=== PATIENT | male | born 1960 | race American Indian/Alaskan Native ===

== ENCOUNTER 2020-04-17 06:50 | Observation (INO) | payer OTHER ==
[2020-04-17] MEDS ORDERED: ACETAMINOPHEN 325 MG TAB PO ONE (07:17)
--- NOTE | 2020-04-17 07:22 | Emergency Department Report ---
ED General Adult HPI - General Chief complaint: Dizziness Stated complaint: DIZZINESS,STEFANY PUI?: No Time Seen by Provider: 04/17/20 07:00 Source: patient, RN notes reviewed Mode of arrival: Wheelchair Limitations: No Limitations, Physical Limitation - History of Present Illness Initial comments: The patient was evaluated in the emergency department for symptoms described in the history of present illness. He/she was evaluated in the context of the global COVID-19 pandemic, which necessitated consideration that the patient mi ght be at risk for infection with the virus that causes COVID-19. Institutional protocols and algorithms that pertain to the evaluation of patients at risk for COVID-19 are in a state of rapid change based on information released by regulatory bodies including the CDC and federal and state organizations. These policies and algorithms were followed during the patient's care in the emergency department. Please note that these policies, procedures and recommendations changed on a rapid basis. The patient is a 59-year-old gentleman. He is not known to myself previously. 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 He typically follows with the [facility] in [place], and also reports that he follows with a manager of network, by the name of Dr. Leal. His past medical history includes obesity, factor V mutation, pulmonary embolism in 1993, on lifetime Coumadin/anticoagulation, diagnosed with COVID-19 in February 2020, reports recently being admitted to [facility] twice within the past month, for renal insufficiency, pneumonia, and symptomatic Covid. He was cleared to return to work yesterday. He states that he saw his primary care doctor, and had an x- ray the chest, which he states was "okay." The patient was working this evening, in his capacity as a manager line on the floor, reports that he was feeling like he was in his usual state of health. 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 He states that while trying to get himself up, he felt shortness of breath, generalized weakness, and dizziness. Dizziness is described as generalized weakness. He denies sensation of imbalance, he did admit to lightheadedness, and denies sensation of room spinning. He states "I feel like I am out of shape." He also has a history of obstructive sleep apnea, and has been noncompliant with his CPAP for over a month, secondary to not purchasing distilled water. He states that he feels like he is back to his baseline at this time. He denies physical pain at this time, with the exception of nontraumatic left medial and plantar foot pain. This has been present for 5 days. He lives at home by himself, and has a cane. He does not have stairs at home. -: Sudden Consistency: now resolved Improves with: rest Worsens with: movement - Related Data Home Medications Medication Instructions Recorded Confirmed Last Taken Rosuvastatin Calcium [Crestor] 10 mg PO QDAY 04/17/20 04/17/20 Unknown Vitamin B Complex [Super B-50 1 each PO QDAY 04/17/20 04/17/20 Unknown Complex] Warfarin [Coumadin] 5 mg PO QDAY 04/17/20 04/17/20 Unknown Zinc Sulfate [Zinc-15] 66 mg PO QDAY 04/17/20 04/17/20 Unknown Previous Rx's Medication Instructions Recorded Last Taken Type Magnesium Oxide 400 mg PO QDAY #30 tablet 04/17/20 Unknown Rx Potassium Chloride [K-Dur] 20 meq PO QDAY #30 tablet 04/17/20 Unknown Rx Ascorbic Acid/Ascorbate Sodium 500 mg PO QDAY #30 wafer 04/20/20 Unknown Rx [Vitamin C 500 mg Wafer] Atenolol [Tenormin] 100 mg PO DAILY #30 04/20/20 Unknown Rx Insulin Regular, Human [Novolin R 20 unit SQ QAM 30 Days 04/20/20 Unknown Rx Flexpen] Insulin Regular, Human [Novolin R] 30 unit IJ QHS 30 Days vial 04/20/20 Unknown Rx Levothyroxine [Synthroid] 125 mcg PO QAM #30 04/20/20 Unknown Rx Metformin HCl [Glucophage] 1,000 mg PO BID 30 Days 04/20/20 Unknown Rx Pantoprazole [Protonix TAB] 40 mg PO QDAC #30 tablet 04/20/20 Unknown Rx amLODIPine 5 mg PO DAILY #30 04/20/20 Unknown Rx glipiZIDE [Glucotrol] 5 mg PO QDAY #30 04/20/20 Unknown Rx hydroCHLOROthiazide [HCTZ] 25 mg PO QDAY #30 04/20/20 Unknown Rx lisinopriL [Zestril TAB] 20 mg PO QDAY 30 Days 04/20/20 Unknown Rx metFORMIN [Glucophage] 1,000 mg PO BIDDIAB tablet 04/20/20 Unknown Rx Allergies Allergy/AdvReac Type Severity Reaction Status Date / Time ibuprofen Allergy Unknown Verified 04/17/20 18:50 ED Review of Systems ROS: Stated complaint: DIZZINESS,STEFANY Other details as noted in HPI Constitutional: malaise, weakness. denies: fever Eyes: denies: eye discharge ENT: denies: congestion Respiratory: shortness of breath, SOB with exertion, SOB at rest Cardiovascular: dyspnea on exertion. denies: chest pain Gastrointestinal: denies: abdominal pain, nausea, vomiting, hematemesis, melena, hematochezia Genitourinary: denies: dysuria Musculoskeletal: back pain, myalgia Neurological: weakness Hematological/Lymphatic: denies: easy bleeding ED Past Medical Hx - Medications Home Medications: Home Medications Medication Instructions Recorded Confirmed Last Taken Type Magnesium Oxide 400 mg PO QDAY #30 tablet 04/17/20 Unknown Rx Potassium Chloride [K-Dur] 20 meq PO QDAY #30 tablet 04/17/20 Unknown Rx Rosuvastatin Calcium [Crestor] 10 mg PO QDAY 04/17/20 04/17/20 Unknown History Vitamin B Complex [Super B-50 1 each PO QDAY 04/17/20 04/17/20 Unknown History Complex] Warfarin [Coumadin] 5 mg PO QDAY 04/17/20 04/17/20 Unknown History Zinc Sulfate [Zinc-15] 66 mg PO QDAY 04/17/20 04/17/20 Unknown History Ascorbic Acid/Ascorbate Sodium 500 mg PO QDAY #30 wafer 04/20/20 Unknown Rx [Vitamin C 500 mg Wafer] Atenolol [Tenormin] 100 mg PO DAILY #30 04/20/20 Unknown Rx Insulin Regular, Human [Novolin R 20 unit SQ QAM 30 Days 04/20/20 Unknown Rx Flexpen] Insulin Regular, Human [Novolin R] 30 unit IJ QHS 30 Days vial 04/20/20 Unknown Rx Levothyroxine [Synthroid] 125 mcg PO QAM #30 04/20/20 Unknown Rx Metformin HCl [Glucophage] 1,000 mg PO BID 30 Days 04/20/20 Unknown Rx Pantoprazole [Protonix TAB] 40 mg PO QDAC #30 tablet 04/20/20 Unknown Rx amLODIPine 5 mg PO DAILY #30 04/20/20 Unknown Rx glipiZIDE [Glucotrol] 5 mg PO QDAY #30 04/20/20 Unknown Rx hydroCHLOROthiazide [HCTZ] 25 mg PO QDAY #30 04/20/20 Unknown Rx lisinopriL [Zestril TAB] 20 mg PO QDAY 30 Days 04/20/20 Unknown Rx metFORMIN [Glucophage] 1,000 mg PO BIDDIAB tablet 04/20/20 Unknown Rx ED Physical Exam - General Limitations: Physical Limitation General appearance: alert, in no apparent distress, obese - Head Head exam: Present: atraumatic, normocephalic - Eye Eye exam: Present: normal appearance, PERRL, EOMI, other (Visual acuity intact to finger counting, color perception, reading at a close distance). Absent: nystagmus - ENT ENT exam: Present: normal exam, normal orophraynx, mucous membranes moist, normal external ear exam - Neck Neck exam: Present: normal inspection, full ROM. Absent: tenderness, meningismus - Respiratory Respiratory exam: Present: normal lung sounds bilaterally. Absent: respiratory distress, wheezes, rales, rhonchi, stridor, decreased breath sounds - Cardiovascular Cardiovascular Exam: Present: regular rate, normal rhythm, normal heart sounds. Absent: bradycardia, tachycardia, irregular rhythm, systolic murmur, diastolic murmur, rubs, gallop - GI/Abdominal GI/Abdominal exam: Present: soft. Absent: distended, tenderness, guarding, rebound, rigid, pulsatile mass - Rectal Rectal exam: Present: deferred - Extremities Exam Extremities exam: Present: normal inspection, full ROM, pedal edema (2+ edema in the bilateral lower extremity), other (2+ pulses noted in the bilateral upper and lower extremities. There is no palpable cord. negative Homans sign. Muscular compartments are soft. The pelvis is stable.). Absent: calf tenderness - Back Exam Back exam: Present: normal inspection, full ROM. Absent: tenderness, CVA tenderness (R), CVA tenderness (L), paraspinal tenderness, vertebral tenderness - Neurological Exam Neurological exam: Present: alert (There is normal [id number]. There is no pronator drift. There is no past-pointing.), oriented X3, other (No facial droop. Tongue midline. Extraocular movements intact bilaterally. Facial sensation intact to light touch in V1, V2, V3 distribution bilaterally. 5 and a 5 strength in 4 extremities. Sensation intact to light touch in 4 extremities. There is no past-pointing. ). Absent: motor sensory deficit - Psychiatric Psychiatric exam: Present: normal affect, normal mood - Skin Skin exam: Present: warm, dry, intact, normal color. Absent: rash ED Course Vital Signs 04/17/20 04/17/20 04/17/20 06:55 07:17 07:30 Temperature 98.3 F Pulse Rate 90 79 Respiratory 24 19 Rate Blood Pressure 96/55 Blood Pressure 101/63 [Left] O2 Sat by Pulse 98 Oximetry 04/17/20 04/17/20 04/17/20 07:45 08:00 08:31 Temperature Pulse Rate 77 75 78 Respiratory 20 14 15 Rate Blood Pressure 104/62 112/71 112/71 Blood Pressure [Left] O2 Sat by Pulse 100 100 100 Oximetry 04/17/20 04/17/20 04/17/20 09:00 09:30 10:00 Temperature Pulse Rate 80 79 76 Respiratory 18 18 16 Rate Blood Pressure 108/58 95/65 108/60 Blood Pressure [Left] O2 Sat by Pulse 100 Oximetry 04/17/20 04/17/20 04/17/20 10:30 11:00 11:30 Temperature Pulse Rate 80 72 73 Respiratory 20 11 L 12 Rate Blood Pressure 114/69 107/56 120/70 Blood Pressure [Left] O2 Sat by Pulse 97 98 100 Oximetry 04/17/20 04/17/20 04/17/20 12:00 12:30 13:00 Temperature Pulse Rate 81 76 81 Respiratory 22 21 16 Rate Blood Pressure 109/64 109/63 125/79 Blood Pressure [Left] O2 Sat by Pulse 98 98 Oximetry 04/17/20 04/17/20 04/17/20 14:00 14:30 15:01 Temperature Pulse Rate 78 82 80 Respiratory 26 H 21 14 Rate Blood Pressure 97/65 99/65 107/57 Blood Pressure [Left] O2 Sat by Pulse 100 Oximetry 04/17/20 04/17/20 04/17/20 15:30 16:00 16:30 Temperature Pulse Rate 74 69 82 Respiratory 24 19 17 Rate Blood Pressure 115/63 113/63 113/73 Blood Pressure [Left] O2 Sat by Pulse 98 97 Oximetry 04/17/20 04/17/20 04/17/20 17:00 17:30 18:00 Temperature Pulse Rate 76 82 79 Respiratory 12 14 20 Rate Blood Pressure 115/71 117/70 102/56 Blood Pressure [Left] O2 Sat by Pulse 98 98 98 Oximetry 04/17/20 04/17/20 04/17/20 18:30 19:00 19:30 Temperature Pulse Rate 80 81 85 Respiratory 20 22 24 Rate Blood Pressure 128/75 122/75 128/82 Blood Pressure [Left] O2 Sat by Pulse 99 96 Oximetry 04/17/20 04/17/20 04/17/20 20:00 20:31 21:00 Temperature Pulse Rate Respiratory Rate Blood Pressure 137/84 115/71 126/77 Blood Pressure [Left] O2 Sat by Pulse 98 97 98 Oximetry 04/17/20 04/17/20 04/17/20 21:30 22:00 22:30 Temperature Pulse Rate 76 66 71 Respiratory 22 19 19 Rate Blood Pressure 132/82 132/85 134/81 Blood Pressure [Left] O2 Sat by Pulse 98 99 97 Oximetry 04/17/20 04/17/20 04/18/20 23:01 23:30 00:00 Temperature Pulse Rate 85 74 72 Respiratory 28 H 17 19 Rate Blood Pressure 145/72 133/85 129/82 Blood Pressure [Left] O2 Sat by Pulse 98 98 96 Oximetry 04/18/20 04/18/20 00:11 00:21 Temperature Pulse Rate 67 70 Respiratory 21 25 H Rate Blood Pressure 129/82 134/79 Blood Pressure [Left] O2 Sat by Pulse 98 97 Oximetry - Reevaluation(s) Reevaluation #1: 04/17/20 07:23 Differential diagnosis, including but not limited to: Physical deconditioning, pulmonary hypertension, obstructive sleep apnea, obesity hypoventilation syndrome Assessment and plan: 59-year-old gentleman, who is morbidly obese, on Coumadin therapy, reports recent INR of 2.7, also reports 2 recent hospitalizations within the past month for pneumonia, renal insufficiency, and COVID-19, diagnosed with COVID-19 March 12, 2020, who was in his usual state of health earlier on today, without any symptoms, accidentally dropped a blood sample, leaned over, 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 I suspect the patient is experiencing the natural history of physical deconditioning, and obstructive sleep apnea. He is not currently tachycardic, tachypneic or hypoxic. He is compliant with Coumadin. He states he does not have new or different leg pain or leg swelling. Therefore, I think a pulmonary embolism is unlikely. His physical exam was fairly benign and unremarkable, however, we stood the patient up, and he was not able to walk. We will treat his pain, obtain appropriate laboratory studies, EKG, and x-ray the chest. We will reassess after initial data points. I extensively discussed the patient on the need to remain compliant with his CPAP machine, and to participate in diet, weight loss and lifestyle modifications. 04/17/20 07:27 Orthostasis may also be a component here, blood pressure in the high 90s. Patient denies bright red blood per rectum, and hematemesis. IV fluids ordered. Reevaluation #2: 04/17/20 08:37 Blood pressure improved. Patient able to ambulate with a steady gait. Patient specifically denies hematemesis, and bright red blood per rectum. I offered patient a rectal examination, which he declined. Given that he denies bright red blood per rectum, given that hemoglobin, hematocrit appear to be acceptable at this time, given that he is a reliable historian, I think this plan of care is reasonable. Reevaluation #3: 04/17/20 09:01 Patient reassessed. He is in no acute distress. He tells me he takes lisinopril, HCTZ, Norvasc, Metformin, glipizide, rosuvastatin, as well as insulin. His laboratory studies demonstrate hypokalemia, hypomagnesemia, renal insu fficiency, transaminitis, and elevated total bilirubin. The patient is adamant that he does not want to be admitted to the medical service. I have instructed patient to hold lisinopril, HCTZ, Metformin, glipizide, rosuvastatin. He will need to closely follow-up with his outpatient primary care doctor. He can continue his Norvasc, insulin, and he should participate in diet lifestyle modifications. 04/17/20 09:02 Patient also given a copy of his laboratory studies to take to his primary care doctor. Hyperglycemia reviewed and appreciated. This appears to be chronic. Insulin will be held given hypokalemia. We will replete patient's potassium and magnesium orally. The patient is adamant that he does not want to be admitted to the hospital, and states he would like to follow-up with as an outpatient with his primary care doctor. Reevaluation #4: 04/17/20 09:23 I went back to reevaluate the patient. I have discussed his laboratory studies with himself once again. His blood pressure is now 96/55. I have strongly counseled the patient to allow us to admit him to the medical service, for supportive care, and further diagnostic work-up and evaluation for his multiple laboratory abnormalities. He states he is amenable at this point in time for hospitalization. Hospital physician, Dr. Aneudy Mishra, To admit patient to the medical service. She requests a repeat Covid test, given his history of Covid from last month. I do not suspect a Covid infection at this time However, as a courtesy, I will order the test and defer to the inpatient team to followed up ED Medical Decision Making - Lab Data Result diagrams: 04/19/20 06:00 04/19/20 06:00 Vital Signs 04/17/20 06:55 Pulse Rate 90 Respiratory 24 Rate Blood Pressure 101/63 [Left] O2 Sat by Pulse 98 Oximetry Vital Signs 04/17/20 04/17/20 04/17/20 06:55 07:17 07:30 Temperature 98.3 F Pulse Rate 90 79 Respiratory 24 19 Rate Blood Pressure 96/55 Blood Pressure 101/63 [Left] O2 Sat by Pulse 98 Oximetry 04/17/20 07:45 Temperature Pulse Rate 77 Respiratory 20 Rate Blood Pressure 104/62 Blood Pressure [Left] O2 Sat by Pulse 100 Oximetry Lab Results 04/17/20 04/17/20 04/17/20 Range/Units 07:43 07:43 07:43 WBC 10.4 (4.5-11.0) K/mm3 RBC 4.48 (3.65-5.03) M/mm3 Hgb 12.9 (11.8-15.2) gm/dl Hct 38.7 (35.5-45.6) % MCV 87 (84-94) fl MCH 29 (28-32) pg MCHC 33 (32-34) % RDW 17.5 H (13.2-15.2) % Plt Count 175 (140-440) K/mm3 [place] % (Auto) 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 INR 2.76 H (0.87-1.13) APTT 41.0 H (24.2-36.6) Sec. Sodium 140 (137-145) mmol/L Potassium 3.3 L (3.6-5.0) mmol/L Chloride 99.3 (98-107) mmol/L Carbon Dioxide 27 (22-30) mmol/L Anion Gap 17 mmol/L BUN 15 (9-20) mg/dL Creatinine 2.0 H (0.8-1.3) mg/dL Estimated GFR 42 ml/min BUN/Creatinine Ratio 8 % Glucose 260 H (75-100) mg/dL Calcium 10.1 (8.4-10.2) mg/dL Magnesium 1.60 L (1.7-2.3) mg/dL Total Bilirubin 1.30 H (0.1-1.2) mg/dL AST 328 H (5-40) units/L ALT 276 H (7-56) units/L Alkaline Phosphatase 163 H (35-129) units/L Total Creatine Kinase 123 (55-170) units/L Troponin T < 0.010 (0.00-0.029) ng/mL Total Protein 6.9 (6.3-8.2) g/dL Albumin 3.4 L (3.9-5) g/dL Albumin/Globulin Ratio 1.0 % TSH (0.270-4.200) mlU/mL 04/17/ Range/Units 07:43 WBC (4.5-11.0) K/mm3 RBC (3.65-5.03) M/mm3 Hgb (11.8-15.2) gm/dl Hct (35.5-45.6) % MCV (84-94) fl MCH (28-32) pg MCHC (32-34) % RDW (13.2-15.2) % Plt Count (140-440) K/mm3 [place] % (Auto) PT (12.2-14.9) Sec. INR (0.87-1.13) APTT (24.2-36.6) Sec. Sodium (137-145) mmol/L Potassium (3.6-5.0) mmol/L Chloride (98-107) mmol/L Carbon Dioxide (22-30) mmol/L Anion Gap mmol/L BUN (9-20) mg/dL Creatinine (0.8-1.3) mg/dL Estimated GFR ml/min BUN/Creatinine Ratio % Glucose (75-100) mg/dL Calcium (8.4-10.2) mg/dL Magnesium (1.7-2.3) mg/dL Total Bilirubin (0.1-1.2) mg/dL AST (5-40) units/L ALT (7-56) units/L Alkaline Phosphatase (35-129) units/L Total Creatine Kinase (55-170) units/L Troponin T (0.00-0.029) ng/mL Total Protein (6.3-8.2) g/dL Albumin (3.9-5) g/dL Albumin/Globulin Ratio % TSH 3.520 (0.270-4.200) mlU/mL - EKG Data -: EKG Interpreted by [place] EKG shows normal: sinus rhythm Rate: normal - EKG Data When compared to previous EKG there are: previous EKG unavailable 04/17/20 07:45 Sinus rhythm, 78 bpm, QTC prolonged, 459 ms. Left axis deviation, left anterior fascicular block. Nonspecific T wave abnormalities. Abnormal EKG. Not a STEMI. - Radiology Data Radiology results: pending Critical care attestation.: If time is entered above; I have spent that time in minutes in the direct care of this critically ill patient, excluding procedure time. ED Disposition Clinical Impression: Obstructive sleep apnea of adult, Anticoagulated, Noncompliance, Obesity, Shortness of breath, Physical deconditioning, Hypokalemia, Hypomagnesemia, Diabetes, Transaminitis, Renal insufficiency Disposition: -09 OP ADMIT IP TO THIS HOSP Is pt being admited?: Yes Does the pt Need Aspirin: No Condition: Fair
[2020-04-17] MEDS ORDERED: LACTATED RINGERS 500 ML IV ONE ×2 (07:27→09:20)
[2020-04-17 08:19] LABS: Hematocrit 38.7 % (35.5-45.6); Hemoglobin 12.9 gm/dl (11.8-15.2); Mean Corpuscular HGB Conc 33 % (32-34); Mean Corpuscular Volume 87 fl (84-94); Platelet Count 175 K/mm3 (140-440); Red Blood Count 4.48 M/mm3 (3.65-5.03); Red Cell Distribution Width 17.5 % (13.2-15.2)
[2020-04-17 08:33] LABS: INR 2.76 (0.87-1.13)
--- NOTE | 2020-04-17 08:43 | XRay Report ---
CHEST 2 VIEWS INDICATION / CLINICAL INFORMATION: dyspnea. COMPARISON: None available. FINDINGS: SUPPORT DEVICES: None. HEART / MEDIASTINUM: No significant abnormality. LUNGS / PLEURA: No significant pulmonary or pleural abnormality. No pneumothorax. ADDITIONAL FINDINGS: No significant additional findings. IMPRESSION: 1. No acute findings. Signer Name: Eduard Fritz MD Signed: 04/17/2020 8:39 AM Workstation Name: [id number]
[2020-04-17 08:45] LABS: Alanine Aminotransferase 276 units/L (7-56); Albumin 3.4 g/dL (3.9-5); BUN/Creatinine Ratio 8; Blood Urea Nitrogen 15 mg/dL (9-20); Calcium 10.1 mg/dL (8.4-10.2); Hemolysis Index 3
[2020-04-17] MEDS ORDERED: MAGNESIUM OXIDE 400 MG TAB PO STA (08:53)
[2020-04-17] MEDS ORDERED: POTASSIUM CHLORIDE ER 20 MEQ TAB PO ONE (08:53)
[2020-04-17 09:56] LABS: Basophils # (Auto) 0.1 K/mm3 (0.0-0.1); Basophils % (Auto) 0.6 % (0.0-1.8); Eosinophils % (Auto) 0.3 % (0.0-4.3); Lymphocytes # (Auto) 2.4 K/mm3 (1.2-5.4); Lymphocytes % (Auto) 22.5 % (13.4-35.0); Monocytes # (Auto) 0.7 K/mm3 (0.0-0.8)
--- NOTE | 2020-04-17 10:01 | History and Physical Report ---
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 He also suddenly felt shortness of breath ,generalized weakness ,dizziness and lightheadedness. Did not have any chest pain or palpitations denies vertigo or any sudden focal weakness, numbness or blurring of vision. Patient has history of obstructive sleep apnea, noncompliant with CPAP No history of loss of consciousness, initial work-up in the emergency room show stable vital signs Chest x-ray no acute abnormality however patient had transaminitis, anemia, acute kidney injury, coagulopathy[patient takes Coumadin] And electrolyte abnormality/hypokalemia and hypomagnesemia. At the time of my eval patient patient is asymptomatic Past History Past Medical History: arthritis (Bilateral knee), diabetes, hypertension, pulmonary embolism, other (CHUCK, factor V mutation, recent Covid) Past Surgical History: No surgical history, Other ( arthroscopy of the knee) Social history: denies: smoking, alcohol abuse, prescription drug abuse Family history: hypertension Medications and Allergies Allergies Allergy/AdvReac Type Severity Reaction Status Date / Time ibuprofen Allergy Unknown Verified 04/17/20 18:50 Home Medications Medication Instructions Recorded Confirmed Last Taken Type Ascorbic Acid/Ascorbate Sodium 500 mg PO QDAY 04/17/20 04/17/20 Unknown History [Vitamin C 500 mg Wafer] Atenolol [Tenormin] 100 mg PO DAILY 04/17/20 04/17/20 Unknown History Insulin Regular, Human [Novolin R 20 unit SQ QAM 04/17/20 04/17/20 Unknown History Flexpen] Insulin Regular, Human [Novolin R] 30 unit IJ QHS 04/17/20 04/17/20 Unknown History Levothyroxine [Synthroid] 125 mcg PO QAM 04/17/20 04/17/20 Unknown History Magnesium Oxide 400 mg PO QDAY #30 tablet 04/17/20 Unknown Rx Metformin HCl [Glucophage] 1,000 mg PO BID 04/17/20 04/17/20 Unknown History Potassium Chloride [K-Dur] 20 meq PO QDAY #30 tablet 04/17/20 Unknown Rx Rosuvastatin Calcium [Crestor] 10 mg PO QDAY 04/17/20 04/17/20 Unknown History Vitamin B Complex [Super B-50 1 each PO QDAY 04/17/20 04/17/20 Unknown History Complex] Warfarin [Coumadin] 5 mg PO QDAY 04/17/20 04/17/20 Unknown History Zinc Sulfate [Zinc-15] 66 mg PO QDAY 04/17/20 04/17/20 Unknown History amLODIPine [Norvasc] 5 mg PO DAILY 04/17/20 04/17/20 Unknown History glipiZIDE [Glucotrol] 5 mg PO QDAY 04/17/20 04/17/20 Unknown History hydroCHLOROthiazide [HCTZ] 25 mg PO QDAY 04/17/20 04/17/20 Unknown History lisinopriL [Zestril] 20 mg PO QDAY 04/17/20 04/17/20 Unknown History Review of Systems Constitutional: weakness, malaise, no weight loss, no weight gain Ears, nose, mouth and throat: no nasal congestion, no nasal discharge Cardiovascular: lightheadedness, no chest pain, no orthopnea, no palpitations, no syncope Respiratory: no cough, no hemoptysis, no shortness of breath Gastrointestinal: no abdominal pain, no nausea, no vomiting, no diarrhea Genitourinary Male: no dysuria, no hematuria Musculoskeletal: muscle weakness, arthritis (Bilateral knee) Integumentary: no rash, no lesions Neurological: weakness, no seizures, no syncope Psychiatric: no anxiety, no depression Endocrine: no cold intolerance, no heat intolerance Hematologic/Lymphatic: no easy bruising, no easy bleeding Allergic/Immunologic: no urticaria, no allergic rhinitis Exam - Constitutional Vitals: Temp Pulse Resp BP Pulse Ox 98.3 F 77 20 104/62 100 04/17/20 07:17 04/17/20 07:45 04/17/20 07:45 04/17/20 07:45 04/17/20 07:45 General appearance: Present: mild distress, well-nourished, obese (Morbidly obese) - EENT Eyes: Present: PERRL, EOM intact - Neck Neck: Present: supple, normal ROM - Respiratory Respiratory effort: normal Respiratory: bilateral: diminished, negative: rales, rhonchi, wheezing - Cardiovascular Rhythm: regular Heart Sounds: Present: S1 & S2 - Extremities Extremities: no ischemia, No edema - Abdominal General gastrointestinal: Present: soft, non-tender, non-distended, normal bowel sounds - Integumentary Integumentary: Present: clear, warm - Musculoskeletal Musculoskeletal: generalized weakness - Psychiatric Psychiatric: appropriate mood/affect, cooperative - Neurologic Neurologic: moves all extremities HEART Score - HEART Score Troponin: Troponin T < 0.010 ng/mL (0.00-0.029) 04/17/20 07:43 Results - Labs CBC & Chem 7: 04/17/20 07:43 04/17/20 07:43 Labs: Abnormal lab results 04/17/20 04/17/20 04/17/20 Range/Units 07:43 07:43 07:43 RDW 17.5 H (13.2-15.2) % PT 29.3 H (12.2-14.9) Sec. INR 2.76 H (0.87-1.13) APTT 41.0 H (24.2-36.6) Sec. Potassium 3.3 L (3.6-5.0) mmol/L Creatinine 2.0 H (0.8-1.3) mg/dL Glucose 260 H (75-100) mg/dL Magnesium 1.60 L (1.7-2.3) mg/dL Total Bilirubin 1.30 H (0.1-1.2) mg/dL AST 328 H (5-40) units/L ALT 276 H (7-56) units/L Alkaline Phosphatase 163 H (35-129) units/L Albumin 3.4 L (3.9-5) g/dL Assessment and Plan --Acute liver injury/transaminitis; Recheck ultrasound abdomen, I will also request acute hepatitis panel We will closely monitor transaminases Supportive care and GI consult --History of factor V mutation; Patient on lifelong anticoagulation On Coumadin .therapeutic INR between 2-3 --GERD; Protonix, supportive care --PUI; patient has history of recent Covid 19 We will check negron PCR, contact and droplet isolation --Acute kidney injury; Vasomotor nephropathy, gentle hydration Monitor renal function, avoid nephrotoxins --Hypokalemia; I will replenish with KCl, will monitor electrolytes --Hypomagnesemia; Replenish with mag sulfate We will closely monitor electrolytes --Obstructive sleep apnea; Place the patient on CPAP/BiPAP at night supportive care, strongly advised to comply with the CPAP --Morbid obesity; BMI 47.5 Patient may need weight reduction when medically stable --VT prophylaxis; SCDs Patient is coagulopathic No pharmacologic anticoagulation Closely monitor the patient and adjust the management as needed Pending work-up, follow GI evaluation and recommendations Plan of care reviewed with the patient and his nurse We will request for home medications and resume appropriate meds Spent total 50 minutes coordinating this admission
[2020-04-17 12:02] LABS: Hepatitis B Surface Antigen Reactive (Negative); Hepatitis C Virus Antibody Non-Reactive (NonReactive)
--- NOTE | 2020-04-17 12:03 | Ultrasound Report ---
ULTRASOUND ABDOMEN, COMPLETE INDICATION: Transaminitis/liver failure. COMPARISON: No relevant prior imaging study available. FINDINGS: Pancreas: Not well seen due to overlying bowel gas.. Abdominal Aorta: Not well visualized due to overlying bowel gas. Proximal aorta measures 2.6 cm in di ameter. IVC: Not well seen. Liver: Liver is enlarged measuring 18.4 cm. No focal hepatic lesions are seen.. There is increased ec hogenicity characteristic of fatty infiltration or hepatocellular disease. Gallbladder: No significant abnormality. Bile ducts: No significant abnormality. Common bile duct measures 4 mm. Kidneys: Right: No significant abnormality. Left : No significant abnormality. Spleen: No significant abnormality. Free fluid: None. Additional Findings: None. IMPRESSION: 1. The liver is enlarged. There is increased echogenicity characteristic of fatty infiltration or hep atocellular disease. 2. Pancreas aorta and inferior vena cava are not well seen due to overlying bowel gas.. Signer Name: Eduard Fritz MD Signed: 04/17/2020 11:59 AM Workstation Name: [id number]
[2020-04-17 12:31] LABS: Total Cells Counted 100
[2020-04-17 12:32] LABS: Platelet Estimate Consistent w Auto; Tear Drop Cells Few
--- NOTE | 2020-04-17 18:27 | Gastroenterology Consultation ---
History of Present Illness - Reason for Consult Consult date: 04/17/20 Abnl LFTs Requesting physician: CAROLINA CARIAS - History of Present Illness The patient is a 59 yo male admitted last month ([facility]) for COVID. He was cleared to return to work, and was doing well until today, when he became very light-headed when bending over to cloth picker some tubes. He had no CP or SOB; he denied RUQ pain, N/V, jaundice, or itching. 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 He denies any risk factor, other than he has had rare needle sticks over the years. He has no hx of abnl LFTs or hepatitis. Past History Past Medical History: diabetes, hypertension, liver disease, pulmonary embolism, other (Morbid Obesity, Recent COVID, Factor V Def/Hx of PE) Past Surgical History: No surgical history Social history: denies: smoking, alcohol abuse Family history: no significant family history Medications and Allergies Allergies Allergy/AdvReac Type Severity Reaction Status Date / Time ibuprofen Allergy Unknown Verified 04/17/20 06:54 Home Medications Medication Instructions Recorded Confirmed Last Taken Type Magnesium Oxide 400 mg PO QDAY #30 tablet 04/17/20 Unknown Rx Potassium Chloride [K-Dur] 20 meq PO QDAY #30 tablet 04/17/20 Unknown Rx Active Meds: Active Medications Sodium Chloride (Nacl 0.9% 1000 Ml) 1,000 mls @ 100 mls/hr IV DIRECT JOHANNA Insulin Human Lispro (Insulin Lispro 100 Unit/Ml Vial 3 Ml) 0 unit SUB-Q ACHS JOHANNA; Protocol Pantoprazole Sodium (Pantoprazole 40 Mg Tab) 40 mg PO QDAC JOHANNA I HAVE REVIEWED AND RECONCILED MEDICATIONS. Review of Systems - Review of Systems All systems: negative (as noted in the HPI) Exam - Constitutional Vital Signs: Temp Pulse Resp BP Pulse Ox 98.3 F 76 12 115/71 98 04/17/20 07:17 04/17/20 17:00 04/17/20 17:00 04/17/20 17:00 04/17/20 17:00 General appearance: no acute distress - EENT Eyes: PERRL, EOM intact ENT: hearing intact, clear oral mucosa, no thrush - Neck Neck: supple, normal ROM - Respiratory Respiratory effort: normal Respiratory: bilateral: CTA - Cardiovascular Rhythm: regular Heart Sounds: Present: S1 & S2 Extremities: no ischemia, No edema - Gastrointestinal General gastrointestinal: Present: soft, non-tender, non-distended - Integumentary Integumentary: Present: clear, warm, dry. Absent: jaundice - Neurologic Neurological: alert and oriented x3 - Labs CBC & Chem 7: 04/17/20 07:43 04/17/20 07:43 Lab Results: Laboratory Results - last 24 hr 04/17/20 04/17/20 04/17/20 07:43 07:43 07:43 WBC 10.4 RBC 4.48 Hgb 12.9 Hct 38.7 MCV 87 MCH 29 MCHC 33 RDW 17.5 H Plt Count 175 Lymph % (Auto) 22.5 [place] % (Auto) Cold Food Packer Eos % (Auto) 0.3 Baso % (Auto) 0.6 Lymph # (Auto) 2.4 [place] # (Auto) 0.7 Eos # (Auto) 0.0 Baso # (Auto) 0.1 Add Manual Diff Complete Total Counted 100 Seg Neutrophils % 69.7 Seg Neuts % (Manual) 76.0 H Lymphocytes % (Manual) 11.0 L Reactive Lymphs % (Man) 3.0 Monocytes % (Manual) 5.0 Eosinophils % (Manual) 1.0 Basophils % (Manual) 4.0 H Nucleated RBC % Not Reportable Seg Neutrophils # 7.5 Seg Neutrophils # Man 7.9 H Band Neutrophils # 0.0 Lymphocytes # (Manual) 1.1 L Abs React Lymphs (Man) 0.3 Monocytes # (Manual) 0.5 Eosinophils # (Manual) 0.1 Basophils # (Manual) 0.4 H Metamyelocytes # 0.0 Myelocytes # 0.0 Promyelocytes # 0.0 Blast Cells # 0.0 WBC Morphology Not Reportable Hypersegmented Neuts Not Reportable Hyposegmented Neuts Not Reportable Hypogranular Neuts Not Reportable Smudge Cells Not Reportable Toxic Granulation Not Reportable Toxic Vacuolation Not Reportable Dohle Bodies Not Reportable Pelger-Huet Anomaly Not Reportable Gilma Rods Not Reportable Platelet Estimate Consistent w auto Clumped Platelets Not Reportable Plt Clumps, EDTA Not Reportable Large Platelets Not Reportable Giant Platelets Not Reportable Platelet Satelliting Not Reportable Plt Morphology Comment Not Reportable RBC Morphology Not Reportable Dimorphic RBCs Not Reportable Polychromasia Not Reportable Hypochromasia Not Reportable Poikilocytosis Not Reportable Anisocytosis Not Reportable Microcytosis Not Reportable Macrocytosis Not Reportable Spherocytes Not Reportable Pappenheimer Bodies Not Reportable Sickle Cells Not Reportable Target Cells Not Reportable Tear Drop Cells Few Ovalocytes Not Reportable Helmet Cells Not Reportable [place]ac[place]-Landis Bodies Not Reportable [place] Rings Not Reportable [place] Cells Not Reportable Bite Cells Not Reportable Crenated Cell Not Reportable Elliptocytes Few Acanthocytes (Spur) Not Reportable Rouleaux Not Reportable Hemoglobin C Crystals Not Reportable Schistocytes Not Reportable Malaria parasites Not Reportable Fermin Bodies Not Reportable Hem Pathologist Commnt No PT 29.3 H INR 2.76 H APTT 41.0 H Sodium 140 Potassium 3.3 L Chloride 99.3 Carbon Dioxide 27 Anion Gap 17 BUN 15 Creatinine 2.0 H Estimated GFR 42 BUN/Creatinine Ratio 8 Glucose 260 H Calcium 10.1 Magnesium 1.60 L Total Bilirubin 1.30 H AST 328 H ALT 276 H Alkaline Phosphatase 163 H Total Creatine Kinase 123 Troponin T < 0.010 Total Protein 6.9 Albumin 3.4 L Albumin/Globulin Ratio 1.0 TSH Hepatitis A IgM Ab Hep Bs Antigen Hep B Core IgM Ab Hepatitis C Antibody 04/17/20 04/17/20 04/17/20 07:43 07:43 07:44 WBC RBC Hgb Hct MCV MCH MCHC RDW Plt Count Lymph % (Auto) [place] % (Auto) Eos % (Auto) Baso % (Auto) Lymph # (Auto) [place] # (Auto) Eos # (Auto) Baso # (Auto) Add Manual Diff Total Counted Seg Neutrophils % Seg Neuts % (Manual) Lymphocytes % (Manual) Reactive Lymphs % (Man) Monocytes % (Manual) Eosinophils % (Manual) Basophils % (Manual) Nucleated RBC % Seg Neutrophils # Seg Neutrophils # Man Band Neutrophils # Lymphocytes # (Manual) Abs React Lymphs (Man) Monocytes # (Manual) Eosinophils # (Manual) Basophils # (Manual) Metamyelocytes # Myelocytes # Promyelocytes # Blast Cells # WBC Morphology TNR Hypersegmented Neuts Hyposegmented Neuts Hypogranular Neuts Smudge Cells Toxic Granulation Toxic Vacuolation Dohle Bodies Pelger-Huet Anomaly Gilma Rods Platelet Estimate Clumped Platelets Plt Clumps, EDTA Large Platelets Giant Platelets Platelet Satelliting Plt Morphology Comment RBC Morphology Dimorphic RBCs Polychromasia Hypochromasia Poikilocytosis Anisocytosis Microcytosis Macrocytosis Spherocytes Pappenheimer Bodies Sickle Cells Target Cells Tear Drop Cells Ovalocytes Helmet Cells Peacock-Landis Bodies [place] Rings Miranda Cells Bite Cells Crenated Cell Elliptocytes Acanthocytes (Spur) Rouleaux Hemoglobin C Crystals Schistocytes Malaria parasites Fermin Bodies Hem Pathologist Commnt PT INR APTT Sodium Potassium Chloride Carbon Dioxide Anion Gap BUN Creatinine Estimated GFR BUN/Creatinine Ratio Glucose Calcium Magnesium Total Bilirubin AST ALT Alkaline Phosphatase Total Creatine Kinase Troponin T Total Protein Albumin Albumin/Globulin Ratio TSH 3.520 Hepatitis A IgM Ab Non-reactive Hep Bs Antigen Reactive Hep B Core IgM Ab Reactive A Hepatitis C Antibody Non-reactive Assessment and Plan 1. Abnormal LFTs 2. Recent COVID 3. Possible Hepatitis B - Will check confirmatory DNA for HBV, as well as a surface IgG antibody. - For now, continue PO diet, and further w/u of syncope per primary team.
--- NOTE | 2020-04-17 19:58 | Cat Scan Report ---
CT head/brain wo con INDICATION: Dizziness, near syncope. TECHNIQUE: Routine CT head without contrast. All CT scans at this location are performed using CT dos e reduction for ALARA by means of automated exposure control. COMPARISON: None. FINDINGS: BRAIN / INTRACRANIAL CONTENTS: No acute hemorrhage, mass effect, midline shift, or hydrocephalus. No appreciable acute large territorial or lacunar infarct. No chronic infarct or focal atrophy. Normal b rain volume and ventricular/sulcal size for age. ORBITS: No significant abnormality of visualized orbits. SINUSES / MASTOIDS: There is a mucous retention cyst in left maxillary sinus. ADDITIONAL FINDINGS: None. IMPRESSION: 1. No acute intracranial abnormality. Signer Name: Honorio Leiva MD Signed: 04/17/2020 7:54 PM Workstation Name: [id number]
[2020-04-17] MEDS: INSULIN LISPRO 100 UNIT/ML VIAL 3 mL SUB-Q SCH (22:54)
[2020-04-18] MEDS: SODIUM CHLORIDE 0.9% 1000 ML 1,000 ML IV SCH ×2 (01:56→22:09)
[2020-04-18 07:07] LABS: Basophils # (Auto) 0.1 K/mm3 (0.0-0.1); Basophils % (Auto) 0.8 % (0.0-1.8); Eosinophils # (Auto) 0.1 K/mm3 (0.0-0.4); Hematocrit 35.4 % (35.5-45.6); Hemoglobin 11.8 gm/dl (11.8-15.2); Lymphocytes # (Auto) 2.5 K/mm3 (1.2-5.4); Lymphocytes % (Auto) 32.9 % (13.4-35.0); Mean Corpuscular HGB Conc 33 % (32-34); Mean Corpuscular Volume 86 fl (84-94); Monocytes # (Auto) 0.7 K/mm3 (0.0-0.8); Platelet Count 156 K/mm3 (140-440)
[2020-04-18 07:28] LABS: Albumin 3.2 g/dL (3.9-5); Bilirubin,Direct 0.7 mg/dL (0-0.2)
[2020-04-18 07:30] LABS: Albumin 3.3 g/dL (3.9-5); Calcium 9.9 mg/dL (8.4-10.2)
[2020-04-18] MEDS: INSULIN LISPRO 100 UNIT/ML VIAL 3 mL SUB-Q SCH ×4 (07:30→22:09)
[2020-04-18] MEDS: PANTOPRAZOLE 40 MG TAB PO SCH (08:00)
[2020-04-18] MEDS ORDERED: POTASSIUM CHLORIDE ER 20 MEQ TAB PO ONE (09:57)
--- NOTE | 2020-04-18 12:50 | Progress Note ---
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 He also suddenly felt shortness of breath ,generalized weakness ,dizziness and lightheadedness. Did not have any chest pain or palpitations denies vertigo or any sudden focal weakness, numbness or blurring of vision. Patient has history of obstructive sleep apnea, noncompliant with CPAP No history of loss of consciousness, initial work-up in the emergency room show stable vital signs Chest x-ray no acute abnormality however patient had transaminitis, anemia, acute kidney injury, coagulopathy[patient takes Coumadin] And electrolyte abnormality/hypokalemia and hypomagnesemia. At the time of my eval patient patient is asymptomatic 04/18 patient is alert and oriented and offers no specific complaints. He de nies any nausea or vomiting. Denies abdominal pain. Denies fever or chills all questions answered. Lab results reviewed. GI note reviewed Assessment and plan --Acute liver injury/transaminitis; GI note reviewed Lab results reviewed Hepatitis panel reviewed ?Acute hepatitis B --History of factor V mutation; Patient on lifelong anticoagulation On Coumadin INR is therapeutic Continue warfarin -Hyperglycemia Check A1c Initiate insulin sliding scale coverage --GERD; Protonix, supportive care --PUI; patient has history of recent Covid 19 check negron PCR, contact and droplet isolation --Acute kidney injury; Vasomotor nephropathy, gentle hydration Monitor renal function, avoid nephrotoxins Serum creatinine down to 1.7 today --Hypokalemia; Serum potassium 3.1 Potassium supplements ordered --Hypomagnesemia;-improved monitor electrolytes --Obstructive sleep apnea; Continue CPAP/BiPAP at night supportive care, strongly advised to comply with the CPAP --Morbid obesity; BMI 47.5 Patient may need weight reduction when medically stable DVT prophylaxis-warfarin Objective - Constitutional Vitals: Vital Signs - 12hr 04/18/20 04/18/20 04/18/20 00:50 01:24 02:23 Temperature 97.3 F L Pulse Rate 78 73 188 H Respiratory 20 18 Rate Blood Pressure 136/84 132/76 O2 Sat by Pulse 97 95 Oximetry 04/18/20 04/18/20 04/18/20 03:58 10:00 10:14 Temperature 97.4 F L Pulse Rate 72 100 H Respiratory 20 20 Rate Blood Pressure 114/74 O2 Sat by Pulse 99 97 97 Oximetry General appearance: Present: no acute distress, obese - EENT Eyes: PERRL, EOM intact ENT: hearing intact - Neck Neck: supple, normal ROM, no masses or JVD - Respiratory Respiratory effort: normal Respiratory: bilateral: CTA, diminished - Cardiovascular Rhythm: regular Heart Sounds: Present: S1 & S2 Extremities: No edema - Gastrointestinal General gastrointestinal: Present: soft, non-tender Rectal Exam: deferred - Genitourinary Male genitourinary: deferred - Integumentary Integumentary: clear, warm - Musculoskeletal Musculoskeletal: strength equal bilaterally - Neurologic Neurologic: no focal deficits - Psychiatric Psychiatric: appropriate mood/affect - Labs CBC & Chem 7: 04/18/20 04:42 04/18/20 04:42 Labs: Abnormal lab results 04/17/20 04/18/20 04/18/20 Range/Units 22:42 04:42 04:42 Hct 35.4 L (35.5-45.6) % RDW 18.0 H (13.2-15.2) % [place] % (Auto) 9.0 H (0.0-7.3) % Potassium 3.1 L (3.6-5.0) mmol/L Creatinine 1.7 H (0.8-1.3) mg/dL Glucose 188 H (75-100) mg/dL POC Glucose 244 H (70-105) mg/dL Direct Bilirubin (0-0.2) mg/dL AST 312 H (5-40) units/L ALT 264 H (7-56) units/L Alkaline Phosphatase 147 H (35-129) units/L Ammonia (25-60) umol/L Total Protein 6.0 L (6.3-8.2) g/dL Albumin 3.3 L (3.9-5) g/dL 04/18/20 04/18/20 04/18/20 Range/Units 04:42 04:42 07:38 Hct (35.5-45.6) % RDW (13.2-15.2) % [place] % (Auto) (0.0-7.3) % Potassium (3.6-5.0) mmol/L Creatinine (0.8-1.3) mg/dL Glucose (75-100) mg/dL POC Glucose 217 H (70-105) mg/dL Direct Bilirubin 0.7 H (0-0.2) mg/dL AST 313 H (5-40) units/L ALT 267 H (7-56) units/L Alkaline Phosphatase 148 H (35-129) units/L Ammonia 19.0 L (25-60) umol/L Total Protein 6.1 L (6.3-8.2) g/dL Albumin 3.2 L (3.9-5) g/dL 04/18/20 Range/Units 11:52 Hct (35.5-45.6) % RDW (13.2-15.2) % [place] % (Auto) (0.0-7.3) % Potassium (3.6-5.0) mmol/L Creatinine (0.8-1.3) mg/dL Glucose (75-100) mg/dL POC Glucose 284 H (70-105) mg/dL Direct Bilirubin (0-0.2) mg/dL AST (5-40) units/L ALT (7-56) units/L Alkaline Phosphatase (35-129) units/L Ammonia (25-60) umol/L Total Protein (6.3-8.2) g/dL Albumin (3.9-5) g/dL HEART Score - HEART Score Troponin: Troponin T < 0.010 ng/mL (0.00-0.029) 04/17/20 07:43
[2020-04-18] MEDS: metFORMIN 500 MG TAB PO SCH (17:35)
--- NOTE | 2020-04-18 17:37 | Gastroenterology Progress Note ---
Assessment and Plan 1. Abnormal LFTs 2. Recent COVID 3. Possible Hepatitis B - Pending confirmatory DNA for HBV, as well as a surface IgG antibody. - LFTs are stable, and OK to discharge home per our service. - Will sign off; please call if needed. Subjective Date of service: 04/18/20 Principal diagnosis: Abnormal LFTs Interval history: The patient has no N/V/abdominal pain. He has had no further syncope. Objective - Constitutional Vitals: Temp Pulse Resp BP Pulse Ox 98.2 F 79 22 95/64 96 04/18/20 11:52 04/18/20 11:52 04/18/20 11:52 04/18/20 11:52 04/18/20 11:52 General appearance: no acute distress - Respiratory Respiratory effort: normal Respiratory: bilateral: CTA - Cardiovascular Rhythm: regular Heart Sounds: Present: S1 & S2 - Gastrointestinal General gastrointestinal: Present: soft, non-tender, non-distended - Labs CBC & Chem 7: 04/18/20 04:42 04/18/20 04:42 Labs: Laboratory Results - last 24 hr 04/17/20 04/18/20 04/18/20 22:42 04:42 04:42 WBC 7.5 RBC 4.10 Hgb 11.8 Hct 35.4 L MCV 86 MCH 29 MCHC 33 RDW 18.0 H Plt Count 156 Lymph % (Auto) 32.9 [place] % (Auto) 9.0 H Eos % (Auto) 1.0 Baso % (Auto) 0.8 Lymph # (Auto) 2.5 [place] # (Auto) 0.7 Eos # (Auto) 0.1 Baso # (Auto) 0.1 Seg Neutrophils % 56.3 Seg Neutrophils # 4.2 Sodium 139 Potassium 3.1 L Chloride 99.4 Carbon Dioxide 28 Anion Gap 15 BUN 17 Creatinine 1.7 H Estimated GFR 50 BUN/Creatinine Ratio 10 Glucose 188 H POC Glucose 244 H Calcium 9.9 Phosphorus 3.00 Magnesium 1.90 Total Bilirubin 1.10 Direct Bilirubin Indirect Bilirubin AST 312 H ALT 264 H Alkaline Phosphatase 147 H Ammonia Total Protein 6.0 L Albumin 3.3 L Albumin/Globulin Ratio 1.2 Amylase 113 Coronavirus (PCR) 04/18/20 04/18/20 04/18/20 04:42 04:42 07:38 WBC RBC Hgb Hct MCV MCH MCHC RDW Plt Count Lymph % (Auto) [place] % (Auto) Eos % (Auto) Baso % (Auto) Lymph # (Auto) [place] # (Auto) Eos # (Auto) Baso # (Auto) Seg Neutrophils % Seg Neutrophils # Sodium Potassium Chloride Carbon Dioxide Anion Gap BUN Creatinine Estimated GFR BUN/Creatinine Ratio Glucose POC Glucose 217 H Calcium Phosphorus Magnesium Total Bilirubin 1.20 Direct Bilirubin 0.7 H Indirect Bilirubin 0.5 AST 313 H ALT 267 H Alkaline Phosphatase 148 H Ammonia 19.0 L Total Protein 6.1 L Albumin 3.2 L Albumin/Globulin Ratio 1.1 Amylase Coronavirus (PCR) 04/18/20 04/18/20 04/18/20 10:20 11:52 17:01 WBC RBC Hgb Hct MCV MCH MCHC RDW Plt Count Lymph % (Auto) [place] % (Auto) Eos % (Auto) Baso % (Auto) Lymph # (Auto) [place] # (Auto) Eos # (Auto) Baso # (Auto) Seg Neutrophils % Seg Neutrophils # Sodium Potassium Chloride Carbon Dioxide Anion Gap BUN Creatinine Estimated GFR BUN/Creatinine Ratio Glucose POC Glucose 284 H 243 H Calcium Phosphorus Magnesium Total Bilirubin Direct Bilirubin Indirect Bilirubin AST ALT Alkaline Phosphatase Ammonia Total Protein Albumin Albumin/Globulin Ratio Amylase Coronavirus (PCR) Negative
[2020-04-18] MEDS ORDERED: NON-FORMULARY EACH (Metformin Hcl [Glucophage] 1,000 MG Tablet) PO SCH (22:00)
[2020-04-19] MEDS: LEVOTHYROXINE 125 MCG TAB PO SCH (06:10)
[2020-04-19] MEDS: SODIUM CHLORIDE 0.9% 1000 ML 1,000 ML IV SCH ×2 (06:13→18:03)
[2020-04-19 07:24] LABS: Hemoglobin 11.2 gm/dl (11.8-15.2); Mean Corpuscular HGB Conc 34 % (32-34); Mean Corpuscular Volume 86 fl (84-94); Platelet Count 150 K/mm3 (140-440); Red Blood Count 3.84 M/mm3 (3.65-5.03); Red Cell Distribution Width 18.5 % (13.2-15.2)
[2020-04-19] MEDS: INSULIN LISPRO 100 UNIT/ML VIAL 3 mL SUB-Q SCH ×4 (07:30→21:32)
[2020-04-19] MEDS: PANTOPRAZOLE 40 MG TAB PO SCH (07:30)
[2020-04-19] MEDS: metFORMIN 500 MG TAB PO SCH ×2 (08:00→17:56)
--- NOTE | 2020-04-19 09:04 | Progress Note ---
Assessment and Plan Assessment and plan: --Acute liver injury/transaminitis; GI note reviewed Lab results reviewed Hepatitis panel reviewed ?Acute hepatitis B --History of factor V mutation; Patient on lifelong anticoagulation On Coumadin INR is therapeutic Continue warfarin -Hyperglycemia Check A1c Initiate insulin sliding scale coverage --GERD; Protonix, supportive care --PUI; patient has history of recent Covid 19 check negron PCR, contact and droplet isolation --Acute kidney injury; Vasomotor nephropathy, gentle hydration Monitor renal function, avoid nephrotoxins Serum creatinine down to 1.7 today --Hypokalemia; Serum potassium 3.1 Potassium supplements ordered --Hypomagnesemia;-improved monitor electrolytes --Obstructive sleep apnea; Continue CPAP/BiPAP at night supportive care, strongly advised to comply with the CPAP --Morbid obesity; BMI 47.5 Patient may need weight reduction when medically stable DVT prophylaxis-warfarin 04/19/2020. Patient's negron PCR was found to be negative. Consider checking Covid antibodies. Anticipate discharge in a.m. 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 He also suddenly felt shortness of breath ,generalized weakness ,dizziness and lightheadedness. Did not have any chest pain or palpitations denies vertigo or any sudden focal weakness, numbness or blurring of vision. Patient has history of obstructive sleep apnea, noncompliant with CPAP No history of loss of consciousness, initial work-up in the emergency room show stable vital signs Chest x-ray no acute abnormality however patient had transaminitis, anemia, acute kidney injury, coagulopathy[patient takes Coumadin] And electrolyte abnormality/hypokalemia and hypomagnesemia. At the time of my eval patient patient is asymptomatic No new issues overnight. Hospitalist Physical - Constitutional Vitals: Temp Pulse Resp BP Pulse Ox 97.4 F L 78 20 119/74 98 04/19/20 04:29 04/18/20 21:31 04/19/20 04:29 04/19/20 04:29 04/18/20 22:00 General appearance: Present: no acute distress, obese - EENT Eyes: Present: PERRL, EOM intact ENT: hearing intact, clear oral mucosa, dentition normal - Neck Neck: Present: supple, normal ROM - Respiratory Respiratory effort: normal Respiratory: bilateral: CTA - Cardiovascular Rhythm: regular Heart Sounds: Present: S1 & S2. Absent: gallop, rub - Extremities Extremities: no ischemia, No edema, Full ROM - Abdominal General gastrointestinal: soft, non-tender, non-distended, normal bowel sounds - Integumentary Integumentary: Present: clear, warm, dry - Neurologic Neurologic: CNII-XII intact, moves all extremities HEART Score - HEART Score Troponin: Troponin T < 0.010 ng/mL (0.00-0.029) 04/17/20 07:43 Results - Labs CBC & Chem 7: 04/19/20 06:00 04/19/20 06:00 Labs: Laboratory Last Values WBC 6.8 K/mm3 (4.5-11.0) 04/19/20 06:00 RBC 3.84 M/mm3 (3.65-5.03) 04/19/20 06:00 Hgb 11.2 gm/dl (11.8-15.2) L 04/19/20 06:00 Hct 33.0 % (35.5-45.6) L 04/19/20 06:00 MCV 86 fl (84-94) 04/19/20 06:00 MCH 29 pg (28-32) 04/19/20 06:00 MCHC 34 % (32-34) 04/19/20 06:00 RDW 18.5 % (13.2-15.2) H 04/19/20 06:00 Plt Count 150 K/mm3 (140-440) 04/19/20 06:00 Lymph % (Auto) 32.9 % (13.4-35.0) 04/18/20 04:42 [place] % (Auto) 9.0 % (0.0-7.3) H 04/18/20 04:42 Eos % (Auto) 1.0 % (0.0-4.3) 04/18/20 04:42 Baso % (Auto) 0.8 % (0.0-1.8) 04/18/20 04:42 Lymph # (Auto) 2.5 K/mm3 (1.2-5.4) 04/18/20 04:42 [place] # (Auto) 0.7 K/mm3 (0.0-0.8) 04/18/20 04:42 Eos # (Auto) 0.1 K/mm3 (0.0-0.4) 04/18/20 04:42 Baso # (Auto) 0.1 K/mm3 (0.0-0.1) 04/18/20 04:42 Add Manual Diff Complete 04/17/20 07:43 Total Counted 100 04/17/20 07:43 Seg Neutrophils % 56.3 % (40.0-70.0) 04/18/20 04:42 Seg Neuts % (Manual) 76.0 % (40.0-70.0) H 04/17/20 07:43 Lymphocytes % (Manual) 11.0 % (13.4-35.0) L 04/17/20 07:43 Reactive Lymphs % (Man) 3.0 % 04/17/20 07:43 Monocytes % (Manual) 5.0 % (0.0-7.3) 04/17/20 07:43 Eosinophils % (Manual) 1.0 % (0.0-4.3) 04/17/20 07:43 Basophils % (Manual) 4.0 % (0.0-1.8) H 04/17/20 07:43 Nucleated RBC % Not Reportable 04/17/20 07:43 Seg Neutrophils # 4.2 K/mm3 (1.8-7.7) 04/18/20 04:42 Seg Neutrophils # Man 7.9 K/mm3 (1.8-7.7) H 04/17/20 07:43 Band Neutrophils # 0.0 K/mm3 04/17/20 07:43 Lymphocytes # (Manual) 1.1 K/mm3 (1.2-5.4) L 04/17/20 07:43 Abs React Lymphs (Man) 0.3 K/mm3 04/17/20 07:43 Monocytes # (Manual) 0.5 K/mm3 (0.0-0.8) 04/17/20 07:43 Eosinophils # (Manual) 0.1 K/mm3 (0.0-0.4) 04/17/20 07:43 Basophils # (Manual) 0.4 K/mm3 (0.0-0.1) H 04/17/20 07:43 Metamyelocytes # 0.0 K/mm3 04/17/20 07:43 Myelocytes # 0.0 K/mm3 04/17/20 07:43 Promyelocytes # 0.0 K/mm3 04/17/20 07:43 Blast Cells # 0.0 K/mm3 04/17/20 07:43 WBC Morphology Not Reportable 04/17/20 07:43 WBC Morphology TNR 04/17/20 07:43 Hypersegmented Neuts Not Reportable 04/17/20 07:43 Hyposegmented Neuts Not Reportable 04/17/20 07:43 Hypogranular Neuts Not Reportable 04/17/20 07:43 Smudge Cells Not Reportable 04/17/20 07:43 Toxic Granulation Not Reportable 04/17/20 07:43 Toxic Vacuolation Not Reportable 04/17/20 07:43 Dohle Bodies Not Reportable 04/17/20 07:43 Pelger-Huet Anomaly Not Reportable 04/17/20 07:43 Gilma Rods Not Reportable 04/17/20 07:43 Platelet Estimate Consistent w auto 04/17/20 07:43 Clumped Platelets Not Reportable 04/17/20 07:43 Plt Clumps, EDTA Not Reportable 04/17/20 07:43 Large Platelets Not Reportable 04/17/20 07:43 Giant Platelets Not Reportable 04/17/20 07:43 Platelet Satelliting Not Reportable 04/17/20 07:43 Plt Morphology Comment Not Reportable 04/17/20 07:43 RBC Morphology Not Reportable 04/17/20 07:43 Dimorphic RBCs Not Reportable 04/17/20 07:43 Polychromasia Not Reportable 04/17/20 07:43 Hypochromasia Not Reportable 04/17/20 07:43 Poikilocytosis Not Reportable 04/17/20 07:43 Anisocytosis Not Reportable 04/17/20 07:43 Microcytosis Not Reportable 04/17/20 07:43 Macrocytosis Not Reportable 04/17/20 07:43 Spherocytes Not Reportable 04/17/20 07:43 Pappenheimer Bodies Not Reportable 04/17/20 07:43 Sickle Cells Not Reportable 04/17/20 07:43 Target Cells Not Reportable 04/17/20 07:43 Tear Drop Cells Few 04/17/20 07:43 Ovalocytes Not Reportable 04/17/20 07:43 Helmet Cells Not Reportable 04/17/20 07:43 [place] Bodies Not Reportable 04/17/20 07:43 [place] Rings Not Reportable 04/17/20 07:43 [place] Cells Not Reportable 04/17/20 07:43 Bite Cells Not Reportable 04/17/20 07:43 Crenated Cell Not Reportable 04/17/20 07:43 Elliptocytes Few 04/17/20 07:43 Acanthocytes (Spur) Not Reportable 04/17/20 07:43 Rouleaux Not Reportable 04/17/20 07:43 Hemoglobin C Crystals Not Reportable 04/17/20 07:43 Schistocytes Not Reportable 04/17/20 07:43 Malaria parasites Not Reportable 04/17/20 07:43 [place] Bodies Not Reportable 04/17/20 07:43 Hem Pathologist Commnt No 04/17/20 07:43 PT 29.3 Sec. (12.2-14.9) H 04/17/20 07:43 INR 2.76 (0.87-1.13) H 04/17/20 07:43 APTT 41.0 Sec. (24.2-36.6) H 04/17/20 07:43 Sodium 140 mmol/L (137-145) 04/19/20 06:00 Potassium 3.1 mmol/L (3.6-5.0) L 04/19/20 06:00 Chloride 103.9 mmol/L (98-107) 04/19/20 06:00 Carbon Dioxide 28 mmol/L (22-30) 04/19/20 06:00 Anion Gap 11 mmol/L 04/19/20 06:00 BUN 15 mg/dL (9-20) 04/19/20 06:00 Creatinine 1.6 mg/dL (0.8-1.3) H 04/19/20 06:00 Estimated GFR 54 ml/min 04/19/20 06:00 BUN/Creatinine Ratio 9 % 04/19/20 06:00 Glucose 224 mg/dL (75-100) H 04/19/20 06:00 POC Glucose 178 mg/dL (70-105) H 04/19/20 08:07 Hemoglobin A1c 10.8 % (4-6) H 04/19/20 06:00 Calcium 9.0 mg/dL (8.4-10.2) 04/19/20 06:00 Phosphorus 3.00 mg/dL (2.5-4.5) 04/18/20 04:42 Magnesium 1.90 mg/dL (1.7-2.3) 04/18/20 04:42 Total Bilirubin 1.40 mg/dL (0.1-1.2) H 04/19/20 06:00 Direct Bilirubin 0.7 mg/dL (0-0.2) H 04/18/20 04:42 Indirect Bilirubin 0.5 mg/dL 04/18/20 04:42 AST 446 units/L (5-40) H 04/19/20 06:00 ALT 314 units/L (7-56) H 04/19/20 06:00 Alkaline Phosphatase 150 units/L (35-129) H 04/19/20 06:00 Ammonia 19.0 umol/L (25-60) L 04/18/20 04:42 Total Creatine Kinase 123 units/L (55-170) 04/17/20 07:43 Troponin T < 0.010 ng/mL (0.00-0.029) 04/17/20 07:43 Total Protein 5.8 g/dL (6.3-8.2) L 04/19/20 06:00 Albumin 3.0 g/dL (3.9-5) L 04/19/20 06:00 Albumin/Globulin Ratio 1.1 % 04/19/20 06:00 Amylase 113 units/L (27-131) 04/18/20 04:42 TSH 3.520 mlU/mL (0.270-4.200) 04/17/20 07:43 Coronavirus (PCR) Negative (Negative) 04/18/20 10:20 Hepatitis A IgM Ab Non-reactive (NonReactive) 04/17/20 07:44 Hep Bs Antigen Reactive (Negative) 04/17/20 07:44 Hep B Core IgM Ab Reactive (NonReactive) A 04/17/20 07:44 Hepatitis C Antibody Non-reactive (NonReactive) 04/17/20 07:44 [place]/IV: Voiding Method Urinal IV Catheter Type [Right Peripheral IV Antecubital] Active Medications - Current Medications Current Medications: Generic Name Dose Route Start Last Admin Trade Name Freq PRN Reason Stop Dose Admin Glipizide 5 mg 04/19/20 08:00 Glipizide 5 Mg Tab PO QAMDIAB JOHANNA Sodium Chloride 1,000 mls @ 100 mls/hr 04/17/20 10:15 04/19/20 06:13 Nacl 0.9% 1000 Ml IV 100 mls/hr DIRECT JOHANNA Administration Insulin Human Lispro 0 unit 04/17/20 22:00 04/18/20 22:09 Insulin Lispro 100 Unit/Ml Vial 3 Ml SUB-Q 3 unit ACHS JOHANNA Administration Protocol Levothyroxine Sodium 125 mcg 04/19/20 06:00 04/19/20 06:10 Levothyroxine 125 Mcg Tab PO 125 mcg DAILY@0600 JOHANNA Administration Metformin HCl 1,000 mg 04/18/20 17:00 04/18/20 17:35 Metformin 500 Mg Tab PO 1,000 mg BIDDIAB JOHANNA Administration Pantoprazole Sodium 40 mg 04/18/20 07:30 04/18/20 08:00 Pantoprazole 40 Mg Tab PO 40 mg QDAC JOHANNA Administration
[2020-04-19] MEDS: glipiZIDE 5 MG TAB PO SCH (09:46)
--- NOTE | 2020-04-19 12:24 | Discharge Summary ---
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 He had no CP or SOB; he denied RUQ pain, N/V, jaundice, or itching. 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 The patient was admitted with diagnosis of acute transaminitis. GI was consulted and evaluated the patient for elevated LFTs and underwent confirmatory DNA for HBV, as well as a surface IgG antibody. LFTs were monitored and eventually stabilized. Patient is felt to have received maximal hospital benefit and will be discharged home. Dedicated discharge time 35 minutes. Disposition: - TO HOME OR SELFCARE Time spent for discharge: 35 - Discharge Diagnoses (1) COVID-19 Status: Acute (2) Diabetes Status: Acute (3) Noncompliance Status: Acute (4) Obesity Status: Acute (5) Transaminitis Status: Acute Core Measure Documentation - Palliative Care Palliative Care/ Comfort Measures: Not Applicable - Core Measures Any of the following diagnoses?: none Exam - Constitutional Vitals: Temp Pulse Resp BP Pulse Ox 97.9 F 76 22 134/80 96 04/19/20 11:55 04/19/20 11:55 04/19/20 11:55 04/19/20 11:55 04/19/20 11:55 General appearance: Present: no acute distress, well-nourished - EENT Eyes: Present: PERRL ENT: hearing intact, clear oral mucosa - Neck Neck: Present: supple, normal ROM - Respiratory Respiratory effort: normal Respiratory: bilateral: CTA - Cardiovascular Heart Sounds: Present: S1 & S2. Absent: rub, click - Extremities Extremities: pulses symmetrical, No edema Peripheral Pulses: within normal limits - Abdominal General gastrointestinal: Present: soft, non-tender, non-distended, normal bowel sounds Male genitourinary: Present: normal - Integumentary Integumentary: Present: clear, warm, dry - Musculoskeletal Musculoskeletal: gait normal, strength equal bilaterally - Psychiatric Psychiatric: appropriate mood/affect, intact judgment & insight - Neurologic Neurologic: CNII-XII intact, moves all extremities Plan Activity: advance as tolerated Weight Bearing Status: Weight Bear as Tolerated Diet: low fat, low cholesterol, low salt, diabetic Follow up with: JUAN LUIS FERRER MD [Staff Physician] - 7-10 days EDDIE VALDEZ MD [Staff Physician] - 7 Days Prescriptions: amLODIPine 5 mg PO DAILY #30 Metformin HCl [Glucophage] 1,000 mg PO BID 30 Days glipiZIDE [Glucotrol] 5 mg PO QDAY #30 hydroCHLOROthiazide [HCTZ] 25 mg PO QDAY #30 Potassium Chloride [K-Dur] 20 meq PO QDAY #30 tablet Magnesium Oxide 400 mg PO QDAY #30 tablet Insulin Regular, Human [Novolin R] 30 unit IJ QHS 30 Days vial Insulin Regular, Human [Novolin R Flexpen] 20 unit SQ QAM 30 Days Pantoprazole [Protonix TAB] 40 mg PO QDAC #30 tablet Levothyroxine [Synthroid] 125 mcg PO QAM #30 Atenolol [Tenormin] 100 mg PO DAILY #30 Ascorbic Acid/Ascorbate Sodium [Vitamin C 500 mg Wafer] 500 mg PO QDAY #30 wafer lisinopriL [Zestril TAB] 20 mg PO QDAY 30 Days
[2020-04-20] MEDS: LEVOTHYROXINE 125 MCG TAB PO SCH (05:29)
[2020-04-20] MEDS: SODIUM CHLORIDE 0.9% 1000 ML 1,000 ML IV SCH (05:31)
[2020-04-20] MEDS: INSULIN LISPRO 100 UNIT/ML VIAL 3 mL SUB-Q SCH ×2 (08:05→12:51)
[2020-04-20] MEDS: metFORMIN 500 MG TAB PO SCH (10:10)
[2020-04-20] MEDS: glipiZIDE 5 MG TAB PO SCH (10:10)
[2020-04-20] MEDS: PANTOPRAZOLE 40 MG TAB PO SCH (10:10)
[2020-04-20 13:01] VITALS: BP 128/81
== END 2020-04-20 17:00 | disposition home or self-care (01) ==
LOC: ED 06:50 → 3A 09:24
PROVIDERS: ADMIT Internal Medicine; ATTEND Hospitalist
DX: N17.9 Acute kidney failure, unspecified (principal); Z20.828 Contact with and (suspected) exposure to other viral communicable diseases; S36.119A Unspecified injury of liver, initial encounter; G47.33 Obstructive sleep apnea (adult) (pediatric); R74.01 Elevation of levels of liver transaminase levels; R06.02 Shortness of breath; D68.51 Activated protein C resistance; E11.9 Type 2 diabetes mellitus without complications; R53.81 Other malaise; N28.9 Disorder of kidney and ureter, unspecified; E87.6 Hypokalemia; E83.42 Hypomagnesemia; M19.90 Unspecified osteoarthritis, unspecified site; I10 Essential (primary) hypertension; K21.9 Gastro-esophageal reflux disease without esophagitis; E66.01 Morbid (severe) obesity due to excess calories; Z68.42 Body mass index [BMI] 45.0-49.9, adult; Z86.711 Personal history of pulmonary embolism; Z98.890 Other specified postprocedural states; Z79.4 Long term (current) use of insulin; Z91.19 Patient's noncompliance with other medical treatment and regimen; Z79.01 Long term (current) use of anticoagulants; Z79.899 Other long term (current) drug therapy; X58.XXXA Exposure to other specified factors, initial encounter; Y93.89 Activity, other specified; Y92.89 Other specified places as the place of occurrence of the external cause; Y99.8 Other external cause status
CPT/HCPCS: 36415; 70450; 71046; 76700; 80053; 80074; 80076; 82106; 82140; 82150; 82550; 82962; 83036; 83735; 84100; 84443; 84484; 85007; 85025; 85027; 85610; 85730; 86706; 93005; 94660; 94760; 96360; 96361; 99285; G0378; J1815; J7030; J7120; U0003; 87517

== ENCOUNTER 2020-06-19 05:27 | Emergency (ER) | payer OTHER ==
--- NOTE | 2020-06-19 05:51 | Event Note ---
ED Screening Note Date of service: 06/19/20 Time: 05:49 ED Screening Note: Patient presents with complaints of sudden onset of dizziness and lightheadedness tonight while at work He denies vision changes, chest pain, shortness of breath, swelling, nausea/vomiting/diarrhea, or fever/chills/sweats Patient has history of PE and is currently on Coumadin He denies any headache or history of strokes History of Covid 03/19 Also history of RADHA x2 per patient Patient states "I think I am just overly tired from working" This initial assessment/diagnostic orders/clinical plan/treatment(s) is/are subject to change based on patients health status, clinical progression and re- assessment by fellow clinical providers in the ED. Further treatment and workup at subsequent clinical providers discretion. Patient/guardian urged not to elope from the ED as their condition may be serious if not clinically assessed and managed. Initial orders include: Labs EKG
[2020-06-19 06:00] LABS: Basophils % (Auto) 0.6 % (0.0-1.8); Eosinophils # (Auto) 0.2 K/mm3 (0.0-0.4); Eosinophils % (Auto) 2.4 % (0.0-4.3); Hematocrit 35.4 % (35.5-45.6); Hemoglobin 11.8 gm/dl (11.8-15.2); Lymphocytes # (Auto) 3.1 K/mm3 (1.2-5.4); Lymphocytes % (Auto) 42.6 % (13.4-35.0); Mean Corpuscular HGB Conc 33 % (32-34); Mean Corpuscular Volume 90 fl (84-94); Monocytes # (Auto) 0.5 K/mm3 (0.0-0.8); Monocytes % (Auto) 6.4 % (0.0-7.3); Platelet Count 183 K/mm3 (140-440); Red Blood Count 3.94 M/mm3 (3.65-5.03); Red Cell Distribution Width 15.2 % (13.2-15.2)
[2020-06-19 06:24] LABS: Alanine Aminotransferase 10 units/L (7-56)
--- NOTE | 2020-06-19 06:34 | Emergency Department Report ---
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 He is an insulin-dependent diabetic with a few bouts of he states reversible acute kidney injury in the past last in March. He was found to have factor V Leiden deficiency in 1993 after bilateral pulmonary embolism. Has been on Coumadin since. He is very compliant with his medication. He has had no recurrent VTE. Patient states that a few hours ago he woke up feeling lightheaded. He denied headache. He denied any focal neurological change. He said no respiratory symptoms or cough. Has had no fever or chills. No GI or symptoms. He did not describe vertigo. He has a persistent feeling of weakness and lighthea dedness. He did not describe a problem with his gait or speech. As for his March admission, he had a recent illness due to COVID-19 as well as hepatitis B virus: Hospitalization Reason for admission: elevated LFT Condition: Fair Hospital course: he patient is a 59 yo male admitted last month ([facility]) for COVID. 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 He had no CP or SOB; he denied RUQ pain, N/V, jaundice, or itching. 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 The patient was admitted with diagnosis of acute transaminitis. GI was consulted and evaluated the patient for elevated LFTs and underwent confirmatory DNA for HBV, as well as a surface IgG antibody. LFTs were monitored and eventually stabilized. Patient is felt to have received maximal hospital benefit and will be discharged home. Dedicated discharge time 35 minutes. Disposition: -01 TO HOME OR SELFCARE Time spent for discharge: 35 - Discharge Diagnoses (1) COVID-19 Status: Acute (2) Diabetes Status: Acute (3) Noncompliance Status: Acute (4) Obesity Status: Acute (5) Transaminitis Status: Acute -: Gradual Severity scale (0 -10): 0 Associated Symptoms: denies other symptoms Treatments Prior to Arrival: none - Related Data Home Medications Medication Instructions Recorded Confirmed Last Taken Rosuvastatin Calcium [Crestor] 10 mg PO QDAY 04/17/20 04/17/20 Unknown Vitamin B Complex [Super B-50 1 each PO QDAY 04/17/20 04/17/20 Unknown Complex] Warfarin [Coumadin] 5 mg PO QDAY 04/17/20 04/17/20 Unknown Zinc Sulfate [Zinc-15] 66 mg PO QDAY 04/17/20 04/17/20 Unknown Previous Rx's Medication Instructions Recorded Last Taken Type Magnesium Oxide 400 mg PO QDAY #30 tablet 04/17/20 Unknown Rx Potassium Chloride [K-Dur] 20 meq PO QDAY #30 tablet 04/17/20 Unknown Rx Ascorbic Acid/Ascorbate Sodium 500 mg PO QDAY #30 wafer 04/20/20 Unknown Rx [Vitamin C 500 mg Wafer] Atenolol [Tenormin] 100 mg PO DAILY #30 04/20/20 Unknown Rx Insulin Regular, Human [Novolin R 20 unit SQ QAM 30 Days 04/20/20 Unknown Rx Flexpen] Insulin Regular, Human [Novolin R] 30 unit IJ QHS 30 Days vial 04/20/20 Unknown Rx Levothyroxine [Synthroid] 125 mcg PO QAM #30 04/20/20 Unknown Rx Metformin HCl [Glucophage] 1,000 mg PO BID 30 Days 04/20/20 Unknown Rx Pantoprazole [Protonix TAB] 40 mg PO QDAC #30 tablet 04/20/20 Unknown Rx amLODIPine 5 mg PO DAILY #30 04/20/20 Unknown Rx glipiZIDE [Glucotrol] 5 mg PO QDAY #30 04/20/20 Unknown Rx hydroCHLOROthiazide [HCTZ] 25 mg PO QDAY #30 04/20/20 Unknown Rx lisinopriL [Zestril TAB] 20 mg PO QDAY 30 Days 04/20/20 Unknown Rx metFORMIN [Glucophage] 1,000 mg PO BIDDIAB tablet 04/20/20 Unknown Rx Potassium Chloride [Klor-Con 8] 8 meq PO QDAY #30 tablet 06/19/20 Unknown Rx Allergies Allergy/AdvReac Type Severity Reaction Status Date / Time ibuprofen Allergy Unknown Verified 04/17/20 18:50 ED Review of Systems ROS: Stated complaint: DIZZY;LIGHTHEADED Other details as noted in HPI Constitutional: weakness (And lightheadedness). denies: chills, fever Eyes: denies: eye pain, eye discharge, vision change ENT: denies: ear pain, throat pain Respiratory: denies: cough, shortness of breath Cardiovascular: denies: chest pain, palpitations Endocrine: no symptoms reported Gastrointestinal: denies: abdominal pain, nausea, diarrhea Genitourinary: denies: urgency, dysuria Musculoskeletal: denies: back pain, arthralgia Skin: denies: rash, lesions Neurological: denies: headache, weakness, paresthesias Psychiatric: denies: anxiety, depression Hematological/Lymphatic: denies: easy bleeding, easy bruising ED Past Medical Hx - Past Medical History Previous Medical History?: Yes Hx Hypertension: Yes Hx Diabetes: Yes Hx Arthritis: Yes Hx Kidney Stones: Yes Hx Tuberculosis: No Hx HIV: No - Surgical History Past Surgical History?: No - Social History Smoking Status: Never Smoker Substance Use Type: None - Medications Home Medications: Home Medications Medication Instructions Recorded Confirmed Last Taken Type Magnesium Oxide 400 mg PO QDAY #30 tablet 04/17/20 Unknown Rx Potassium Chloride [K-Dur] 20 meq PO QDAY #30 tablet 04/17/20 Unknown Rx Rosuvastatin Calcium [Crestor] 10 mg PO QDAY 04/17/20 04/17/20 Unknown History Vitamin B Complex [Super B-50 1 each PO QDAY 04/17/20 04/17/20 Unknown History Complex] Warfarin [Coumadin] 5 mg PO QDAY 04/17/20 04/17/20 Unknown History Zinc Sulfate [Zinc-15] 66 mg PO QDAY 04/17/20 04/17/20 Unknown History Ascorbic Acid/Ascorbate Sodium 500 mg PO QDAY #30 wafer 04/20/20 Unknown Rx [Vitamin C 500 mg Wafer] Atenolol [Tenormin] 100 mg PO DAILY #30 04/20/20 Unknown Rx Insulin Regular, Human [Novolin R 20 unit SQ QAM 30 Days 04/20/20 Unknown Rx Flexpen] Insulin Regular, Human [Novolin R] 30 unit IJ QHS 30 Days vial 04/20/20 Unknown Rx Levothyroxine [Synthroid] 125 mcg PO QAM #30 12/22/20 Unknown Rx Metformin HCl [Glucophage] 1,000 mg PO BID 30 Days 04/20/20 Unknown Rx Pantoprazole [Protonix TAB] 40 mg PO QDAC #30 tablet 04/20/20 Unknown Rx amLODIPine 5 mg PO DAILY #30 04/20/20 Unknown Rx glipiZIDE [Glucotrol] 5 mg PO QDAY #30 04/20/20 Unknown Rx hydroCHLOROthiazide [HCTZ] 25 mg PO QDAY #30 04/20/20 Unknown Rx lisinopriL [Zestril TAB] 20 mg PO QDAY 30 Days 04/20/20 Unknown Rx metFORMIN [Glucophage] 1,000 mg PO BIDDIAB tablet 04/20/20 Unknown Rx Potassium Chloride [Klor-Con 8] 8 meq PO QDAY #30 tablet 06/19/20 Unknown Rx ED Physical Exam - General Limitations: Physical Limitation General appearance: alert, in no apparent distress - Head Head exam: Present: atraumatic, normocephalic - Eye Eye exam: Present: normal appearance. Absent: scleral icterus - ENT ENT exam: Present: mucous membranes moist - Neck Neck exam: Present: normal inspection - Respiratory Respiratory exam: Present: normal lung sounds bilaterally. Absent: respiratory distress - Cardiovascular Cardiovascular Exam: Present: regular rate, normal rhythm. Absent: systolic murmur, diastolic murmur, rubs, gallop - GI/Abdominal GI/Abdominal exam: Present: soft, normal bowel sounds. Absent: distended, tenderness, guarding, rebound - Rectal Rectal exam: Present: deferred - Extremities Exam Extremities exam: Present: normal inspection. Absent: pedal edema, joint swelling - Back Exam Back exam: Present: normal inspection - Neurological Exam Neurological exam: Present: alert, oriented X3, CN II-XII intact, other (Cerebellar testing was normal). Absent: motor sensory deficit - Psychiatric Psychiatric exam: Present: normal affect, normal mood - Skin Skin exam: Present: warm, dry, intact, normal color. Absent: rash ED Course Vital Signs 06/19/20 06/19/20 06/19/20 05:30 05:42 07:05 Temperature 98.0 F Pulse Rate 82 81 78 Respiratory 19 12 18 Rate Blood Pressure 104/58 Blood Pressure 121/76 134/76 [Left] O2 Sat by Pulse 97 97 99 Oximetry 06/19/20 08:32 Temperature Pulse Rate 72 Respiratory 16 Rate Blood Pressure Blood Pressure 124/76 [Left] O2 Sat by Pulse 99 Oximetry - Reevaluation(s) Reevaluation #1: Vital signs were stable. Pulse oximetry was 99 to 100%. 06/19/20 06:41 Reevaluation #2: Patient is now totally asymptomatic. He states he is ready to go home. He states he he thinks he just needs some rest. He was found to be hypokalemic. He will be placed on supplemental potassium. This is likely secondary to his diuretic. He is not taking supplemental potassium. 06/19/20 09:10 ED Medical Decision Making - Lab Data Result diagrams: 06/19/20 05:50 06/19/20 05:50 Laboratory Results - last 24 hr 06/19/20 06/19/20 06/19/20 05:50 05:50 06:27 WBC 7.4 RBC 3.94 Hgb 11.8 Hct 35.4 L MCV 90 MCH 30 MCHC 33 RDW 15.2 Plt Count 183 Lymph % (Auto) 42.6 H [place] % (Auto) 6.4 Eos % (Auto) 2.4 Baso % (Auto) 0.6 Lymph # (Auto) 3.1 [place] # (Auto) 0.5 Eos # (Auto) 0.2 Baso # (Auto) 0.0 Seg Neutrophils % 48.0 Seg Neutrophils # 3.5 PT 32.1 H INR 3.10 H APTT 47.0 H Sodium 139 Potassium 3.2 L Chloride 99.7 Carbon Dioxide 28 Anion Gap 15 BUN 19 Creatinine 0.9 Estimated GFR > 60 BUN/Creatinine Ratio 21 Glucose 164 H Calcium 9.2 Total Bilirubin 0.60 AST 15 ALT 10 Alkaline Phosphatase 73 Troponin T < 0.010 NT-Pro-B Natriuret Pep Total Protein 6.4 Albumin 4.0 Albumin/Globulin Ratio 1.7 06/19/20 06:27 WBC RBC Hgb Hct MCV MCH MCHC RDW Plt Count Lymph % (Auto) [place] % (Auto) Eos % (Auto) Baso % (Auto) Lymph # (Auto) [place] # (Auto) Eos # (Auto) Baso # (Auto) Seg Neutrophils % Seg Neutrophils # PT INR APTT Sodium Potassium Chloride Carbon Dioxide Anion Gap BUN Creatinine Estimated GFR BUN/Creatinine Ratio Glucose Calcium Total Bilirubin AST ALT Alkaline Phosphatase Troponin T NT-Pro-B Natriuret Pep 164.5 Total Protein Albumin Albumin/Globulin Ratio Laboratory Results - last 24 hr 06/19/20 06/19/20 06/19/20 05:50 05:50 06:27 WBC 7.4 RBC 3.94 Hgb 11.8 Hct 35.4 L MCV 90 MCH 30 MCHC 33 RDW 15.2 Plt Count 183 Lymph % (Auto) 42.6 H [place] % (Auto) 6.4 Eos % (Auto) 2.4 Baso % (Auto) 0.6 Lymph # (Auto) 3.1 [place] # (Auto) 0.5 Eos # (Auto) 0.2 Baso # (Auto) 0.0 Seg Neutrophils % 48.0 Seg Neutrophils # 3.5 PT 32.1 H INR 3.10 H APTT 47.0 H Sodium 139 Potassium 3.2 L Chloride 99.7 Carbon Dioxide 28 Anion Gap 15 BUN 19 Creatinine 0.9 Estimated GFR > 60 BUN/Creatinine Ratio 21 Glucose 164 H Calcium 9.2 Magnesium Total Bilirubin 0.60 AST 15 ALT 10 Alkaline Phosphatase 73 Troponin T < 0.010 NT-Pro-B Natriuret Pep Total Protein 6.4 Albumin 4.0 Albumin/Globulin Ratio 1.7 06/19/20 06/19/20 06:27 08:08 WBC RBC Hgb Hct MCV MCH MCHC RDW Plt Count Lymph % (Auto) [place] % (Auto) Eos % (Auto) Baso % (Auto) Lymph # (Auto) [place] # (Auto) Eos # (Auto) Baso # (Auto) Seg Neutrophils % Seg Neutrophils # PT INR APTT Sodium Potassium Chloride Carbon Dioxide Anion Gap BUN Creatinine Estimated GFR BUN/Creatinine Ratio Glucose Calcium Magnesium 1.80 Total Bilirubin AST ALT Alkaline Phosphatase Troponin T NT-Pro-B Natriuret Pep 164.5 Total Protein Albumin Albumin/Globulin Ratio - EKG Data -: EKG Interpreted by Me EKG shows normal: sinus rhythm, axis (Left axis deviation), intervals, QRS complexes, ST-T waves Rate: normal - EKG Data Interpretation: nonspecific ST-T wave bonifacio, other (1 atrial premature) - Radiology Data Radiology results: report reviewed, image reviewed No intracranial abnormality, retention cysts in the maxillary sinuses. Critical care attestation.: If time is entered above; I have spent that time in minutes in the direct care of this critically ill patient, excluding procedure time. ED Disposition Clinical Impression: Dizziness and giddiness, Hypokalemia Disposition: DC-01 TO HOME OR SELFCARE Is pt being admited?: No Does the pt Need Aspirin: No Condition: Stable Instructions: Hypokalemia, Dizziness, [id number] Additional Instructions: Rest. Return any acute change or worsening symptoms. Supplemental potassium. Your potassium should be checked while you are on this medicine within the next 2 weeks. Prescriptions: Potassium Chloride [Klor-Con 8] 8 meq PO QDAY #30 tablet Referrals: Usual, primary care [Other] - 3-5 Days HAYESVILLE KAMI CASIANO MD [Primary Care Provider] - as needed Time of Disposition: 09:13
[2020-06-19 07:02] LABS: BUN/Creatinine Ratio 21; Blood Urea Nitrogen 19 mg/dL (9-20); Calcium 9.2 mg/dL (8.4-10.2); Hemolysis Index 3
[2020-06-19 07:05] LABS: INR 3.1 (0.87-1.13)
[2020-06-19] MEDS ORDERED: POTASSIUM CHLORIDE ER 20 MEQ TAB PO ONE (07:56)
--- NOTE | 2020-06-19 08:00 | Cat Scan Report ---
CT HEAD WITHOUT CONTRAST INDICATION / CLINICAL INFORMATION: dizzy, coumadin. TECHNIQUE: All CT scans at this location are performed using CT dose reduction for ALARA by means of automated exposure control. COMPARISON: 04/17/2020 FINDINGS: HEMORRHAGE: None. EXTRA-AXIAL SPACES: Normal in size and morphology for the patient's age. VENTRICULAR SYSTEM: Normal in size and morphology for the patient's age. CEREBRAL PARENCHYMA: No significant abnormality. No acute territorial infarct. MIDLINE SHIFT / HERNIATION: None. CEREBELLUM / BRAINSTEM: No significant abnormality. ORBITS: Normal as visualized. SOFT TISSUES: No significant abnormality. SKULL: No significant abnormality. PARANASAL SINUSES / MASTOID AIR CELLS: There are mucous retention cysts in both maxillary sinuses. ADDITIONAL FINDINGS: None. IMPRESSION: 1. No acute intracranial abnormality. Signer Name: Eduard Fritz MD Signed: 06/19/2020 7:56 AM Workstation Name: [id number]
[2020-06-19 09:47] VITALS: BP 128/82
== END 2020-06-19 09:48 | disposition home or self-care (01) ==
LOC: ED 05:27
DX: R42 Dizziness and giddiness (principal); E87.6 Hypokalemia; I10 Essential (primary) hypertension; E11.9 Type 2 diabetes mellitus without complications; M19.91 Primary osteoarthritis, unspecified site; Z79.4 Long term (current) use of insulin; Z79.899 Other long term (current) drug therapy; Z88.8 Allergy status to other drugs, medicaments and biological substances
CPT/HCPCS: 36415; 70450; 80053; 83735; 83880; 84484; 85025; 85610; 85730; 86850; 86900; 86901; 93005

== ENCOUNTER 2020-10-06 02:01 | Emergency (ER) | payer OTHER ==
[2020-10-06] MEDS ORDERED: MORPHINE 4 MG/1 ML INJ IV ONE (02:08)
[2020-10-06] MEDS ORDERED: SODIUM CHLORIDE 0.9% 1000 ML 1,000 ML IV ONE (02:08)
--- NOTE | 2020-10-06 02:08 | Emergency Department Report ---
ED Male HPI - General Stated complaint: BLOOD IN URINE/NAUSEA/ABD PAIN Time Seen by Provider: 10/06/20 02:05 Source: patient, old records reviewed Mode of arrival: Ambulatory Limitations: No Limitations - History of Present Illness Initial comments: CC: "I do not feel good. HPI: This is a 60 yo male with hx of Grave's Disease, IDDM, HTN, HLD, kidney stone, knee DJD chronic kidney disease who presents with blood in urine, nausea, left flank pain. Left flank pain moderate somatic 10 lives like a tickling tingling sensation. Radiation to left groin. Sudden onset of hematuria. Denies fever. Patient receives care at [facility] Medications include insulin Rosuvastatin Hydrochlorothiazide Atenolol Synthroid Metformin Glipizide Amlodipine Lisinopril Saxagliptin Triaxacin Complaint: other (Left flank pain) -: Sudden, This morning Location: left flank Severity: moderate Severity scale (0 -10): 7 Quality: aching Consistency: constant Improves with: none Worsens with: none blood in urine, other (Nausea) - Related Data Home Medications Medication Instructions Recorded Confirmed Last Taken Rosuvastatin Calcium [Crestor] 10 mg PO QDAY 04/17/20 04/17/20 Unknown Vitamin B Complex [Super B-50 1 each PO QDAY 04/17/20 04/17/20 Unknown Complex] Warfarin [Coumadin] 5 mg PO QDAY 04/17/20 04/17/20 Unknown Zinc Sulfate [Zinc-15] 66 mg PO QDAY 04/17/20 04/17/20 Unknown Previous Rx's Medication Instructions Recorded Last Taken Type Magnesium Oxide 400 mg PO QDAY #30 tablet 04/17/20 Unknown Rx Potassium Chloride [K-Dur] 20 meq PO QDAY #30 tablet 04/17/20 Unknown Rx Ascorbic Acid/Ascorbate Sodium 500 mg PO QDAY #30 wafer 04/20/20 Unknown Rx [Vitamin C 500 mg Wafer] Atenolol [Tenormin] 100 mg PO DAILY #30 04/20/20 Unknown Rx Insulin Regular, Human [Novolin R 20 unit SQ QAM 30 Days 04/20/20 Unknown Rx Flexpen] Insulin Regular, Human [Novolin R] 30 unit IJ QHS 30 Days vial 04/20/20 Unknown Rx Levothyroxine [Synthroid] 125 mcg PO QAM #30 04/20/20 Unknown Rx Metformin HCl [Glucophage] 1,000 mg PO BID 30 Days 04/20/20 Unknown Rx Pantoprazole [Protonix TAB] 40 mg PO QDAC #30 tablet 04/20/20 Unknown Rx amLODIPine 5 mg PO DAILY #30 04/20/20 Unknown Rx glipiZIDE [Glucotrol] 5 mg PO QDAY #30 04/20/20 Unknown Rx hydroCHLOROthiazide [HCTZ] 25 mg PO QDAY #30 04/20/20 Unknown Rx lisinopriL [Zestril TAB] 20 mg PO QDAY 30 Days 04/20/20 Unknown Rx metFORMIN [Glucophage] 1,000 mg PO BIDDIAB tablet 04/20/20 Unknown Rx Potassium Chloride [Klor-Con 8] 8 meq PO QDAY #30 tablet 06/19/20 Unknown Rx Promethazine [Phenergan] 25 mg PO Q6HR PRN #15 tab 10/06/20 Unknown Rx Tamsulosin [Flomax] 0.4 mg PO QDAY 7 Days #7 cap 10/06/20 Unknown Rx oxyCODONE /ACETAMINOPHEN [Percocet 1 tab PO Q6HR PRN #15 tablet 10/06/20 Unknown Rx 5/325] Allergies Allergy/AdvReac Type Severity Reaction Status Date / Time ibuprofen Allergy Unknown Verified 04/17/20 18:50 ED Review of Systems ROS: Stated complaint: BLOOD IN URINE/NAUSEA/ABD PAIN Other details as noted in HPI Comment: All other systems reviewed and negative Constitutional: denies: fever, malaise Respiratory: denies: cough, shortness of breath Cardiovascular: denies: chest pain Genitourinary: hematuria Musculoskeletal: back pain ED Past Medical Hx - Past Medical History Previous Medical History?: Yes Hx Hypertension: Yes Hx Diabetes: Yes Hx Arthritis: Yes Hx Kidney Stones: Yes Hx Tuberculosis: No Hx HIV: No - Social History Smoking Status: Never Smoker Substance Use Type: None - Medications Home Medications: Home Medications Medication Instructions Recorded Confirmed Last Taken Type Magnesium Oxide 400 mg PO QDAY #30 tablet 04/17/20 Unknown Rx Potassium Chloride [K-Dur] 20 meq PO QDAY #30 tablet 04/17/20 Unknown Rx Rosuvastatin Calcium [Crestor] 10 mg PO QDAY 04/17/20 04/17/20 Unknown History Vitamin B Complex [Super B-50 1 each PO QDAY 04/17/20 04/17/20 Unknown History Complex] Warfarin [Coumadin] 5 mg PO QDAY 04/17/20 04/17/20 Unknown History Zinc Sulfate [Zinc-15] 66 mg PO QDAY 04/17/20 04/17/20 Unknown History Ascorbic Acid/Ascorbate Sodium 500 mg PO QDAY #30 wafer 04/20/20 Unknown Rx [Vitamin C 500 mg Wafer] Atenolol [Tenormin] 100 mg PO DAILY #30 04/20/20 Unknown Rx Insulin Regular, Human [Novolin R 20 unit SQ QAM 30 Days 04/20/20 Unknown Rx Flexpen] Insulin Regular, Human [Novolin R] 30 unit IJ QHS 30 Days vial 04/20/20 Unknown Rx Levothyroxine [Synthroid] 125 mcg PO QAM #30 04/20/20 Unknown Rx Metformin HCl [Glucophage] 1,000 mg PO BID 30 Days 04/20/20 Unknown Rx Pantoprazole [Protonix TAB] 40 mg PO QDAC #30 tablet 04/20/20 Unknown Rx amLODIPine 5 mg PO DAILY #30 04/20/20 Unknown Rx glipiZIDE [Glucotrol] 5 mg PO QDAY #30 04/20/20 Unknown Rx hydroCHLOROthiazide [HCTZ] 25 mg PO QDAY #30 04/20/20 Unknown Rx lisinopriL [Zestril TAB] 20 mg PO QDAY 30 Days 04/20/20 Unknown Rx metFORMIN [Glucophage] 1,000 mg PO BIDDIAB tablet 04/20/20 Unknown Rx Potassium Chloride [Klor-Con 8] 8 meq PO QDAY #30 tablet 06/19/20 Unknown Rx Promethazine [Phenergan] 25 mg PO Q6HR PRN #15 tab 10/06/20 Unknown Rx Tamsulosin [Flomax] 0.4 mg PO QDAY 7 Days #7 cap 10/06/20 Unknown Rx oxyCODONE /ACETAMINOPHEN [Percocet 1 tab PO Q6HR PRN #15 tablet 10/06/20 Unknown Rx 5/325] ED Physical Exam - General Limitations: No Limitations General appearance: alert, in no apparent distress - Head Head exam: Present: atraumatic, normocephalic - Eye Eye exam: Present: normal appearance - ENT ENT exam: Present: mucous membranes moist - Neck Neck exam: Present: normal inspection, full ROM - Respiratory Respiratory exam: Present: normal lung sounds bilaterally. Absent: respiratory distress, wheezes, rales, rhonchi - Cardiovascular Cardiovascular Exam: Present: regular rate, normal rhythm, normal heart sounds. Absent: systolic murmur, diastolic murmur, rubs, gallop - GI/Abdominal GI/Abdominal exam: Present: soft, normal bowel sounds. Absent: distended, tenderness, guarding, rebound - Extremities Exam Extremities exam: Present: normal inspection - Neurological Exam Neurological exam: Present: alert, oriented X3 - Psychiatric Psychiatric exam: Present: normal affect, normal mood - Skin Skin exam: Present: warm, dry, intact, normal color. Absent: rash ED Course Vital Signs 10/06/20 02:23 Temperature 98.4 F Pulse Rate 78 Respiratory 18 Rate Blood Pressure 158/94 [Left] O2 Sat by Pulse 98 Oximetry ED Medical Decision Making - Lab Data Result diagrams: 10/06/20 02:29 10/06/20 02:29 - Radiology Data Radiology results: report reviewed Patient Name: HEATHER ACOSTA Gender: Male Date of : 1960 Referring Provider: ARSLAN LEDESMA Organization: [facility] Accession Number: [id number] Requested Date: October 06, 2020 03:22 Report Status: Final Requested Procedure: 1 Procedure Description: CT abdomen pelvis wo con Modality: CT Findings Reporting MD: Yeni Vega Dictation Time: October 06, 2020 02:49 Boring Machine Operator Vertical: Not available High Frequency Mill Operator Date: CT abdomen pelvis wo con INDICATION / CLINICAL INFORMATION: Patient complains of LEFT sided flank pain with Hematuria. TECHNIQUE: Axial CT imaging of abdomen and pelvis was obtained without contrast. Coronal and sagittal reformatted imaging obtained and reviewed. All CT scans at this location are performed using CT dose reduction for ALARA by means of automated exposure control. COMPARISON: None available. FINDINGS: CT abdomen without contrast demonstrates grossly normal appearance of the liver, spleen, pancreas, right kidney, and adrenal glands. Gallbladder is present and without obvious abnormality. There is mild left hydronephrosis caused by a 6 mm calculus in the proximal-mid left ureter, near the UPJ. The calculus is at the level of L4. There is a 2 mm calculus in the lower pole calyx of the left kidney. CT pelvis does not demonstrate any mass, free fluid, or focal inflammatory change. Prostate gland is normal size. Mild diverticulosis is noted throughout the sigmoid colon without diverticulitis. The remainder of the GI tract is grossly normal. A normal appendix is present in the right lower quadrant. Visualized lung bases are grossly clear. No acute significant osseous abnormality. Incidental note is made of mild degenerative disc disease at L4-L5 and L5-S1. IMPRESSION: 1. Mild left hydronephrosis caused by a 6 mm calculus in the proximal-mid left ureter near the UPJ. 2. Left nephrolithiasis. 3. Mild sigmoid diverticulosis. Signer Name: Yeni Vega MD - Medical Decision Making Renal colic, 6 mm stone at the UPJ. Patient is pain-free. No evidence of sepsis SIRS. Normal kidney function. Patient referred to outpatient urologist. He has required several surgical interventions for obstructive kidney stones. Patient understands return precautions including fever vomiting severe pain. Patient prescribed Percocet Flomax and promethazine. Critical care attestation.: If time is entered above; I have spent that time in minutes in the direct care of this critically ill patient, excluding procedure time. ED Disposition Clinical Impression: Renal colic on left side, Acute left flank pain Disposition: DC-01 TO HOME OR SELFCARE Is pt being admited?: No Does the pt Need Aspirin: No Condition: Stable Instructions: Kidney Stones, [id number] Prescriptions: Tamsulosin [Flomax] 0.4 mg PO QDAY 7 Days #7 cap oxyCODONE /ACETAMINOPHEN [Percocet 5/325] 1 tab PO Q6HR PRN #15 tablet PRN Reason: Pain Promethazine [Phenergan] 25 mg PO Q6HR PRN #15 tab PRN Reason: Nausea Referrals: GALLO CALVIN MD [Staff Physician] - 3-5 Days Forms: Work/School Release Form(ED)
[2020-10-06] MEDS ORDERED: ONDANSETRON 4 MG/2 ML INJ IV ONE (02:09)
[2020-10-06 02:56] LABS: Basophils % (Auto) 0.5 % (0.0-1.8); Eosinophils # (Auto) 0.2 K/mm3 (0.0-0.4); Eosinophils % (Auto) 2.8 % (0.0-4.3); Hematocrit 36.2 % (35.5-45.6); Hemoglobin 11.9 gm/dl (11.8-15.2); Lymphocytes % (Auto) 45.8 % (13.4-35.0); Mean Corpuscular HGB Conc 33 % (32-34); Mean Corpuscular Volume 87 fl (84-94); Monocytes # (Auto) 0.5 K/mm3 (0.0-0.8); Monocytes % (Auto) 7.6 % (0.0-7.3); Platelet Count 155 K/mm3 (140-440); Red Blood Count 4.18 M/mm3 (3.65-5.03); Red Cell Distribution Width 15.1 % (13.2-15.2)
[2020-10-06 03:16] LABS: BUN/Creatinine Ratio 16; Blood Urea Nitrogen 14 mg/dL (9-20); Calcium 9.2 mg/dL (8.4-10.2); Hemolysis Index 9
--- NOTE | 2020-10-06 03:53 | Cat Scan Report ---
CT abdomen pelvis wo con INDICATION / CLINICAL INFORMATION: Patient complains of LEFT sided flank pain with Hematuria. TECHNIQUE: Axial CT imaging of abdomen and pelvis was obtained without contrast. Coronal and sagittal reformatte d imaging obtained and reviewed. All CT scans at this location are performed using CT dose reduction for ALARA by means of automated exposure control. COMPARISON: None available. FINDINGS: CT abdomen without contrast demonstrates grossly normal appearance of the liver, spleen, pancreas, ri ght kidney, and adrenal glands. Gallbladder is present and without obvious abnormality. There is mild left hydronephrosis caused by a 6 mm calculus in the proximal-mid left ureter, near the UPJ. The calculus is at the level of L4. There is a 2 mm calculus in the lower pole calyx of the lef t kidney. CT pelvis does not demonstrate any mass, free fluid, or focal inflammatory change. Prostate gland is normal size. Mild diverticulosis is noted throughout the sigmoid colon without diverticulitis. The re mainder of the GI tract is grossly normal. A normal appendix is present in the right lower quadrant. Visualized lung bases are grossly clear. No acute significant osseous abnormality. Incidental note is made of mild degenerative disc disease a t L4-L5 and L5-S1. IMPRESSION: 1. Mild left hydronephrosis caused by a 6 mm calculus in the proximal-mid left ureter near the UPJ. 2. Left nephrolithiasis. 3. Mild sigmoid diverticulosis. Signer Name: Yeni Vega MD Signed: 10/06/2020 3:49 AM Workstation Name: [id number]
[2020-10-06 04:52] LABS: Bilirubin,Urine NEG (Negative); Blood,Urine LG (Negative); Color,Urine Red (Yellow); Urobilinogen,Urine < 2.0 mg/dL (<2.0)
[2020-10-06 04:53] LABS: RBC,Urine > 182.0 /HPF (0.0-6.0)
[2020-10-06] MEDS ORDERED: TAMSULOSIN 0.4 MG CAP PO ONE (05:10)
[2020-10-06 06:05] VITALS: BP 156/74
== END 2020-10-06 06:05 | disposition home or self-care (01) ==
LOC: ED 02:01
DX: N23 Unspecified renal colic (principal); I10 Essential (primary) hypertension; E11.9 Type 2 diabetes mellitus without complications; M19.91 Primary osteoarthritis, unspecified site; Z79.4 Long term (current) use of insulin; Z79.899 Other long term (current) drug therapy; Z88.6 Allergy status to analgesic agent
CPT/HCPCS: 36415; 74176; 80048; 81001; 85025; 96361; 96374; 96375; 99284; J2270; J2405; J7030

== ENCOUNTER 2020-12-07 08:43 | Emergency (ER) | payer OTHER ==
[2020-12-07 09:27] VITALS: BP 123/77
[2020-12-07 10:26] LABS: Basophils % (Auto) 0.4 % (0.0-1.8); Eosinophils # (Auto) 0.1 K/mm3 (0.0-0.4); Eosinophils % (Auto) 0.8 % (0.0-4.3); Hematocrit 36.4 % (35.5-45.6); Hemoglobin 12.1 gm/dl (11.8-15.2); Lymphocytes # (Auto) 1.7 K/mm3 (1.2-5.4); Lymphocytes % (Auto) 25.8 % (13.4-35.0); Mean Corpuscular HGB Conc 33 % (32-34); Mean Corpuscular Volume 85 fl (84-94); Monocytes # (Auto) 0.5 K/mm3 (0.0-0.8); Platelet Count 179 K/mm3 (140-440); Red Blood Count 4.28 M/mm3 (3.65-5.03); Red Cell Distribution Width 15.8 % (13.2-15.2)
--- NOTE | 2020-12-07 10:39 | Emergency Department Report ---
Blank Doc - Documentation Documentation: 60-year-old male that presents with SOB and generalized weakness. 1- This is a initial triage assessment/medical screening only. Full assessment and work-up will be completed once the patient is in proper hospital gown, ED bed and in a private room setting. This initial assessment/diagnostic orders/clinical plan/ treatment(s) is/are subject to change based on pt's health status, clinical progression and re-assessment by fellow clinical providers in the ED. Further treatment and workup at subsequent clinical providers discretion. Patient/guardians urged not to elope from ED as their condition may be serious if not clinically assessed and managed. 2-cardiac workup
[2020-12-07 10:54] LABS: Alanine Aminotransferase 12 units/L (7-56); Albumin 3.8 g/dL (3.9-5); BUN/Creatinine Ratio 20; Blood Urea Nitrogen 22 mg/dL (9-20); Calcium 9.9 mg/dL (8.4-10.2); Hemolysis Index 3
--- NOTE | 2020-12-07 10:55 | XRay Report ---
CHEST 2 VIEWS INDICATION / CLINICAL INFORMATION: shortness of breath. COMPARISON: April 17, 2020 FINDINGS: SUPPORT DEVICES: None. HEART / MEDIASTINUM: No significant abnormality. LUNGS / PLEURA: No significant pulmonary or pleural abnormality. No pneumothorax. ADDITIONAL FINDINGS: No significant additional findings. IMPRESSION: 1. No acute findings. Signer Name: Chip Hernandez MD Signed: 12/07/2020 10:51 AM Workstation Name: [id number]
[2020-12-07 12:17] LABS: INR 2.79 (0.87-1.13)
[2020-12-07 12:18] LABS: Partial Thromboplastin Time 42.9 Sec. (24.2-36.6)
--- NOTE | 2020-12-07 17:51 | Emergency Department Report ---
ED General Adult HPI - General Chief complaint: Dyspnea/Respdistress Stated complaint: SOB Time Seen by Provider: 12/07/20 10:19 Source: patient Mode of arrival: Ambulatory Limitations: No Limitations - History of Present Illness Initial comments: Patient is 60 years old male with history of hypertension, diabetes, pulmonary embolism and kidney stone. 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 Patient presented to the ER stating that he has having generalized weakness and some shortness of breath. Patient stated that his symptoms started 3 days ago with increased urinary frequency and sweating. Patient denied any chest pain or shortness of breath at this moment. He also denied any abdominal pain, nausea or vomiting. - Related Data Home Medications Medication Instructions Recorded Confirmed Last Taken Rosuvastatin Calcium [Crestor] 10 mg PO QDAY 04/17/20 04/17/20 Unknown Vitamin B Complex [Super B-50 1 each PO QDAY 04/17/20 04/17/20 Unknown Complex] Warfarin [Coumadin] 5 mg PO QDAY 04/17/20 04/17/20 Unknown Zinc Sulfate [Zinc-15] 66 mg PO QDAY 04/17/20 04/17/20 Unknown Previous Rx's Medication Instructions Recorded Last Taken Type Magnesium Oxide 400 mg PO QDAY #30 tablet 04/17/20 Unknown Rx Potassium Chloride [K-Dur] 20 meq PO QDAY #30 tablet 04/17/20 Unknown Rx Ascorbic Acid/Ascorbate Sodium 500 mg PO QDAY #30 wafer 04/20/20 Unknown Rx [Vitamin C 500 mg Wafer] Atenolol [Tenormin] 100 mg PO DAILY #30 04/20/20 Unknown Rx Insulin Regular, Human [Novolin R 20 unit SQ QAM 30 Days 04/20/20 Unknown Rx Flexpen] Insulin Regular, Human [Novolin R] 30 unit IJ QHS 30 Days vial 04/20/20 Unknown Rx Levothyroxine [Synthroid] 125 mcg PO QAM #30 04/20/20 Unknown Rx Metformin HCl [Glucophage] 1,000 mg PO BID 30 Days 04/20/20 Unknown Rx Pantoprazole [Protonix TAB] 40 mg PO QDAC #30 tablet 04/20/20 Unknown Rx amLODIPine 5 mg PO DAILY #30 04/20/20 Unknown Rx glipiZIDE [Glucotrol] 5 mg PO QDAY #30 04/20/20 Unknown Rx hydroCHLOROthiazide [HCTZ] 25 mg PO QDAY #30 04/20/20 Unknown Rx lisinopriL [Zestril TAB] 20 mg PO QDAY 30 Days 04/20/20 Unknown Rx metFORMIN [Glucophage] 1,000 mg PO BIDDIAB tablet 04/20/20 Unknown Rx Potassium Chloride [Klor-Con 8] 8 meq PO QDAY #30 tablet 06/19/20 Unknown Rx Promethazine [Phenergan] 25 mg PO Q6HR PRN #15 tab 10/06/20 Unknown Rx Tamsulosin [Flomax] 0.4 mg PO QDAY 7 Days #7 cap 10/06/20 Unknown Rx oxyCODONE /ACETAMINOPHEN [Percocet 1 tab PO Q6HR PRN #15 tablet 10/06/20 Unknown Rx 5/325] Allergies Allergy/AdvReac Type Severity Reaction Status Date / Time ibuprofen Allergy Unknown Verified 04/17/20 18:50 ED Review of Systems ROS: Stated complaint: SOB Other details as noted in HPI Comment: All other systems reviewed and negative Constitutional: chills. denies: fever Respiratory: denies: cough, shortness of breath, SOB with exertion, SOB at rest, wheezing Cardiovascular: denies: chest pain, palpitations Gastrointestinal: denies: abdominal pain, nausea, vomiting Genitourinary: frequency. denies: urgency, dysuria, hematuria Musculoskeletal: denies: back pain Neurological: weakness. denies: headache, numbness, paresthesias, confusion ED Past Medical Hx - Past Medical History Previous Medical History?: Yes Hx Hypertension: Yes Hx Diabetes: Yes Hx Arthritis: Yes Hx Kidney Stones: Yes Hx Tuberculosis: No Hx HIV: No - Social History Smoking Status: Never Smoker Substance Use Type: None - Medications Home Medications: Home Medications Medication Instructions Recorded Confirmed Last Taken Type Magnesium Oxide 400 mg PO QDAY #30 tablet 04/17/20 Unknown Rx Potassium Chloride [K-Dur] 20 meq PO QDAY #30 tablet 04/17/20 Unknown Rx Rosuvastatin Calcium [Crestor] 10 mg PO QDAY 04/17/20 04/17/20 Unknown History Vitamin B Complex [Super B-50 1 each PO QDAY 04/17/20 04/17/20 Unknown History Complex] Warfarin [Coumadin] 5 mg PO QDAY 04/17/20 04/17/20 Unknown History Zinc Sulfate [Zinc-15] 66 mg PO QDAY 04/17/20 04/17/20 Unknown History Ascorbic Acid/Ascorbate Sodium 500 mg PO QDAY #30 wafer 04/20/20 Unknown Rx [Vitamin C 500 mg Wafer] Atenolol [Tenormin] 100 mg PO DAILY #30 04/20/20 Unknown Rx Insulin Regular, Human [Novolin R 20 unit SQ QAM 30 Days 04/20/20 Unknown Rx Flexpen] Insulin Regular, Human [Novolin R] 30 unit IJ QHS 30 Days vial 04/20/20 Unknown Rx Levothyroxine [Synthroid] 125 mcg PO QAM #30 04/20/20 Unknown Rx Metformin HCl [Glucophage] 1,000 mg PO BID 30 Days 04/20/20 Unknown Rx Pantoprazole [Protonix TAB] 40 mg PO QDAC #30 tablet 04/20/20 Unknown Rx amLODIPine 5 mg PO DAILY #30 04/20/20 Unknown Rx glipiZIDE [Glucotrol] 5 mg PO QDAY #30 04/20/20 Unknown Rx hydroCHLOROthiazide [HCTZ] 25 mg PO QDAY #30 04/20/20 Unknown Rx lisinopriL [Zestril TAB] 20 mg PO QDAY 30 Days 04/20/20 Unknown Rx metFORMIN [Glucophage] 1,000 mg PO BIDDIAB tablet 04/20/20 Unknown Rx Potassium Chloride [Klor-Con 8] 8 meq PO QDAY #30 tablet 06/19/20 Unknown Rx Promethazine [Phenergan] 25 mg PO Q6HR PRN #15 tab 10/06/20 Unknown Rx Tamsulosin [Flomax] 0.4 mg PO QDAY 7 Days #7 cap 10/06/20 Unknown Rx oxyCODONE /ACETAMINOPHEN [Percocet 1 tab PO Q6HR PRN #15 tablet 10/06/20 Unknown Rx 5/325] ED Physical Exam - General Limitations: No Limitations General appearance: alert, in no apparent distress - Head Head exam: Present: atraumatic, normocephalic, normal inspection - Eye Eye exam: Present: normal appearance, PERRL - ENT ENT exam: Present: normal exam, normal orophraynx, mucous membranes moist - Neck Neck exam: Present: normal inspection, full ROM. Absent: tenderness, meningismus - Respiratory Respiratory exam: Present: normal lung sounds bilaterally - Cardiovascular Cardiovascular Exam: Present: regular rate, normal rhythm, normal heart sounds - GI/Abdominal GI/Abdominal exam: Present: soft, normal bowel sounds. Absent: distended, tenderness, guarding, rebound, rigid, organomegaly, mass, bruit, pulsatile mass, hernia - Extremities Exam Extremities exam: Present: normal inspection, full ROM, normal capillary refill. Absent: tenderness, pedal edema, joint swelling, calf tenderness - Back Exam Back exam: Present: normal inspection, full ROM. Absent: CVA tenderness (R), CVA tenderness (L) - Neurological Exam Neurological exam: Present: alert, oriented X3, CN II-XII intact, normal gait, reflexes normal. 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 Patient presented to the ER stating that he has having generalized weakness and some shortness of breath. Patient stated that his symptoms started 3 days ago with increased urinary frequency and sweating. Patient denied any chest pain or shortness of breath at this moment. He also denied any abdominal pain, nausea or vomiting. Patient remained stable in the ER with stable vital signs. Labs reviewed and is unremarkable except for urine is significantly positive for UTI. Patient given prescription for ciprofloxacin and advised to follow-up with his primary care physician in the next 2 to 3 days and to return to the ER if he develop any new symptoms. Critical care attestation.: If time is entered above; I have spent that time in minutes in the direct care of this critically ill patient, excluding procedure time. ED Disposition Clinical Impression: Shortness of breath, UTI (urinary tract infection) Disposition: TO HOME OR SELFCARE Is pt being admited?: No Condition: Stable Instructions: Urinary Tract Infection, Adult, [id number] Referrals: PRIMARY CARE, [Primary Care Provider] - 3-5 Days
[2020-12-07 19:19] LABS: Bilirubin,Urine NEG (Negative); Blood,Urine LG (Negative); Color,Urine Yellow (Yellow); Mucus,Urine 1+ /HPF; Sperm,Urine FEW /HPF (NP)
[2020-12-07 19:25] LABS: WBC,Urine > 182.0 /HPF (0.0-6.0)
--- NOTE | 2020-12-10 09:07 | Electrocardiograph Report ---
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
== END 2020-12-07 21:55 | disposition home or self-care (01) ==
LOC: ED 08:43
DX: R06.02 Shortness of breath (principal); N39.0 Urinary tract infection, site not specified; I10 Essential (primary) hypertension; E11.8 Type 2 diabetes mellitus with unspecified complications; M19.90 Unspecified osteoarthritis, unspecified site; Z87.442 Personal history of urinary calculi; Z88.6 Allergy status to analgesic agent
CPT/HCPCS: 36415; 71046; 80053; 81001; 83735; 83880; 84484; 85025; 85610; 85730; 93005; 99284